=== PATIENT | female | born 1960 | race Caucasian/White ===

== ENCOUNTER → 2016-12-31 | Outpatient (CLI) | payer MEDICARE ==
--- NOTE | 2017-01-03 14:43 | MM ---
Reason for exam: screening (asymptomatic). Last mammogram was performed 1 year ago. History: Patient has history of other cancer at age 51. Benign stereotactic core biopsy of the right breast, January 24, 2003. Benign excisional biopsy of the right breast, 1997. Core biopsy of the right breast. Physical Findings: A clinical breast exam by your physician is recommended on an annual basis and results should be correlated with mammographic findings. MG 3D Screening Mammo W/Cad Bilateral CC and MLO view(s) were taken. Prior study comparison: January 07, 2016, right breast MG 3d work up w/cad RT. December 31, 2015, bilateral MG 3d screening mammo w/cad. December 25, 2014, bilateral MG screening mammo w CAD. There are scattered fibroglandular densities. Finding: There are typically benign round calcifications in both breasts. Previous mammotome biopsy in the right breast. There is no discrete abnormality. ASSESSMENT: Incomplete: need additional imaging evaluation, BI-RAD 0 RECOMMENDATION: Ultrasound of the left breast. (palpable by patient) [facility] will attempt to contact patient to return for ultrasound.
== END | disposition home or self-care (01) ==
LOC: RADMAMWWP 13:03
PROVIDERS: ATTEND Obstetrics & Gynecology
DX: Z12.31 Encounter for screening mammogram for malignant neoplasm of breast (principal); R92.8 Other abnormal and inconclusive findings on diagnostic imaging of breast
CPT/HCPCS: 77063; G0202

== ENCOUNTER → 2017-01-12 | Outpatient (CLI) | payer MEDICARE ==
--- NOTE | 2017-01-13 08:18 | USB ---
Reason for exam: additional evaluation requested from abnormal screening. History: Patient has history of other cancer at age 51. Benign stereotactic core biopsy of the right breast, January 24, 2003. Benign excisional biopsy of the right breast, 1997. Core biopsy of the right breast. Physical Findings: Nurse Summary: Patient complains of right breast lump, round, pea sized, comes and goes x 1.5 years (nurse mm). US Breast Workup Limited RT Right breast ultrasound demonstrates no cystic or solid lesion seen. These results were verbally communicated with the patient and result sheet given to the patient on 01/12/17. ASSESSMENT: Negative, BI-RAD 1 RECOMMENDATION: Return to routine screening mammogram schedule for both breasts. Manage on a clinical basis with regard to any suspicious palpable areas. The area can be reimaged if the palpable abnormality recurs.
== END | disposition home or self-care (01) ==
LOC: RADUSWWP 14:58
PROVIDERS: ATTEND Obstetrics & Gynecology
DX: R92.8 Other abnormal and inconclusive findings on diagnostic imaging of breast (principal)

== ENCOUNTER → 2018-01-06 | Outpatient (CLI) | payer MEDICARE ==
--- NOTE | 2018-01-09 10:37 | MM ---
Reason for exam: screening (asymptomatic). Last mammogram was performed 1 year ago. History: Patient has history of other cancer at age 51. Benign stereotactic core biopsy of the right breast, January 24, 2003. Benign excisional biopsy of the right breast, 1997. Core biopsy of the right breast. Physical Findings: A clinical breast exam by your physician is recommended on an annual basis and results should be correlated with mammographic findings. MG 3D Screening Mammo W/Cad Bilateral CC, MLO, and XCCL view(s) were taken. Prior study comparison: January 03, 2017, bilateral MG 3d screening mammo w/cad. January 07, 2016, right breast MG 3d work up w/cad RT. The breast tissue is heterogeneously dense. This may lower the sensitivity of mammography. Focal asymmetry upper outer right breast is stable. ASSESSMENT: Incomplete: need additional imaging evaluation, BI-RAD 0 RECOMMENDATION: Ultrasound of the right breast. Manage patient on a clinical basis. [facility] will attempt to contact patient to return for ultrasound.
== END | disposition home or self-care (01) ==
LOC: RADMAMWWP 15:07
PROVIDERS: ATTEND Family Medicine
DX: Z12.31 Encounter for screening mammogram for malignant neoplasm of breast (principal)
CPT/HCPCS: 77063; 77067

== ENCOUNTER → 2018-01-12 | Outpatient (CLI) | payer MEDICARE ==
--- NOTE | 2018-01-13 08:54 | USB ---
Reason for exam: additional evaluation requested from abnormal screening. History: Patient has history of other cancer at age 51. Benign stereotactic core biopsy of the right breast, January 24, 2003. Benign excisional biopsy of the right breast, 1997. Core biopsy of the right breast. Physical Findings: Nurse did not find any significant physical abnormalities on exam. US Breast Workup Limited RT Right breast ultrasound demonstrates a 0.9 x 0.5 x 0.5cm taller than wide, lobular, hypoechoic, vascular lesion at 2 o'clock. These results were verbally communicated with the patient and result sheet given to the patient on 01/12/18. ASSESSMENT: Suspicious, BI-RAD 4 RECOMMENDATION: Ultrasound core biopsy of the right breast. Called Dr. Simpson with mammographic findings and has scheduled an appointment for the patient for 02/02/18 at 8:[address] Geller. Biopsy scheduled for 01/20/18 at 11:30. PRELIMINARY REPORT CALLED AND FAXED TO DR. GELLER ON 01/13/18.
== END | disposition home or self-care (01) ==
LOC: RADUSWWP 14:46
PROVIDERS: ATTEND Family Medicine
DX: R92.8 Other abnormal and inconclusive findings on diagnostic imaging of breast (principal)

== ENCOUNTER → 2018-02-08 | Day surgery (SDC) | payer MEDICARE ==
--- NOTE | 2018-02-08 14:19 | USB ---
EXAMINATION TYPE: US discontinued breast bx RT DATE OF EXAM: 02/08/2018 CLINICAL HISTORY: R92.8 ABNORMAL MAMMOGRAM. Palpable abnormality. The patient also notes a history of prior deep venous thrombosis, hypercoagulability, and scleroderma. TECHNIQUE: Scheduled ultrasound guided core biopsy of right breast. COMPARISON: 01/12/2018 ultrasound, 01/06/2018 mammogram, and 01/20/2018 canceled biopsy. FINDINGS: Preprocedural imaging demonstrates an elongated vessel measuring 3 mm in caliber in the 2:00 position of the right breast in zone C located directly deep to the palpable abnormality as indicated by the patient. This vessel courses from superficial to deep within the right breast. The course of this ves sneha is difficult to be shown on a single image, however with extreme obliquely a hostess party sales representative image on the study of 02/19/2018 (image 7) was demonstrated to be similar to the prior questioned abnormali ty on image 23 of the exam 01/12/2018. On the prior exam only peripheral vascular flow is seen and the re is a hyperechoic slight halo with thickened vascular wall. The patient notes prior subtle pain at that time of examination that has resolved and therefore findings are most consistent with a previous thrombosed superficial vessel, now patent corresponding the palpable abnormality. In addition to mys elf a different imaging tech than on the exam of 01/20/2018 completed today's examination. This abnorma lity is also demonstrated on image 13 and 14 to be similar to the prior. The surrounding area was sca nned with no additional abnormality. 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 BI-RADS3- Probably benign. Recommendation: 6 month follow-up ultrasound is recommended to ensure no recurrence or additional abn ormality in the palpable region.
== END ==
LOC: RADUSWWP 11:16
PROVIDERS: ATTEND Internal Medicine Hematology & Oncology
DX: N63.10 Unspecified lump in the right breast, unspecified quadrant (principal); Z53.8 Procedure and treatment not carried out for other reasons; Z88.6 Allergy status to analgesic agent; Z88.1 Allergy status to other antibiotic agents; Z88.5 Allergy status to narcotic agent; Z88.0 Allergy status to penicillin; Z88.2 Allergy status to sulfonamides

== ENCOUNTER → 2018-08-11 | Outpatient (CLI) | payer MEDICARE ==
--- NOTE | 2018-08-11 15:03 | USB ---
Reason for exam: follow-up at short interval from prior study. History: Patient has history of other cancer at age 51. US discontinued breast bx RT of the right breast, February 08, 2018. US discontinued breast bx RT of the right breast, January 20, 2018. Benign stereotactic core biopsy of the right breast, January 24, 2003. Benign excisional biopsy of the right breast, 1997. Core biopsy of the right breast. Physical Findings: Nurse did not find any significant physical abnormalities on exam. US Breast RT Right complete breast ultrasound includes all four quadrants, the retroareolar region and axilla. Finding demonstrates blood vessel noted at 2 o'clock. This area corresponds to prior abnormality. These results were verbally communicated with the patient and result sheet given to the patient on 08/11/18. ASSESSMENT: Benign, BI-RAD 2 RECOMMENDATION: Return to routine screening mammogram schedule for both breasts. Back on schedule for January 2019. Manage patient on a clinical basis.
== END ==
LOC: RADUSWWP 13:54
PROVIDERS: ATTEND Obstetrics & Gynecology
DX: R92.8 Other abnormal and inconclusive findings on diagnostic imaging of breast (principal)

== ENCOUNTER → 2018-10-11 | Outpatient (CLI) | payer MEDICARE ==
[2018-10-11 12:46] LABS: Blood Urea Nitrogen 6 mg/dL (7-17)
--- NOTE | 2018-10-11 14:27 | MR ---
EXAMINATION TYPE: MR lumbar spine wo/w con DATE OF EXAM: 10/11/2018 COMPARISON: NONE HISTORY: Low back pain, bilateral lower extremity radiculopathy, abnormal reflexes, with history of C ML all per order. Back pain down right leg into toes for 12 years per patient. TECHNIQUE: Multiplanar, multisequence images of the lumbar spine is performed without and with IV contrast, util izing 10 mL intravenous Gadavist FINDINGS: Sagittal images of the lumbar spine show vertebral mild height loss and superior L4 endplat e. Alignment is satisfactory. Multilevel disc desiccation is present. There is mild to moderate disc space narrowing L4-L5 level mild disc space narrowing L5-S1 level. Posterior disc herniations are pre sent L2-L3 through L5-S1 levels on sagittal images. The conus medullaris is normal in position and si gnal ending mid L1 level. The bone marrow signal intensity is within normal limits. No suspicious en hancement is seen. Axial images at T12-L1 level shows tiny left paracentral disc protrusion mildly effacing anterior the renetta sac on axial image 28, bilateral neural foramina are patent. Axial images at L1-L2 level are felt within normal limits. Axial images at L2-L3 level show mild broad disc bulge with focal right paracentral disc protrusion e ffacing anterior thecal sac on axial image 18. Bilateral neural foramina are patent. Axial images at L3-L4 level show mild facet degenerative changes bilaterally. There is mild broad dis c bulge mildly effacing anterior thecal sac on axial image 13. There is mild left-sided anterior infe rior neural foraminal narrowing. Right-sided neural foramen is patent. Axial images at the L4-L5 level show moderate broad disc bulge minimally effacing anterior thecal sac and axial image 8. There is mild facet degenerative changes seen bilaterally. Bilateral neural celi maria l are patent. Axial images at the L5-S1 level show moderate to advanced facet degenerative changes bilaterally. The re is central disc protrusion effacing anterior thecal sac on axial image 3. There is moderate to adv anced left-sided neural foraminal narrowing encroaching near anterior aspect left L5 nerve sagittal i mage 2 and axial image 3. Right-sided neural foramina shows more mild to moderate anterior inferior n eural foraminal narrowing. There is nonenhancing 7 mm round T2 hyperintense lesions laterally right kidney axial image 28 2 smal l to further characterize per presumed simple cyst IMPRESSION: Multilevel degenerative changes in the lumbar spine as detailed above, there is increased left-sided neural foraminal narrowing noted. No large disc herniation identified to account for marcelo ent's right-sided radiculopathy type symptoms. No suspicious enhancement is present.
== END | disposition home or self-care (01) ==
LOC: RADMRIMAIN 12:03
PROVIDERS: ATTEND Physical Medicine & Rehabilitation
DX: M48.061 Spinal stenosis, lumbar region without neurogenic claudication (principal); M47.816 Spondylosis without myelopathy or radiculopathy, lumbar region; E03.9 Hypothyroidism, unspecified; I10 Essential (primary) hypertension; C92.10 Chronic myeloid leukemia, BCR/ABL-positive, not having achieved remission; Z86.73 Personal history of transient ischemic attack (TIA), and cerebral infarction without residual deficits
CPT/HCPCS: 82565; 84520; 72158; 36415; A9585

== ENCOUNTER → 2019-01-26 | Outpatient (CLI) | payer MEDICARE ==
--- NOTE | 2019-01-30 13:08 | MM ---
Reason for exam: screening (asymptomatic). Last mammogram was performed 1 year and 1 month ago. History: Patient has history of other cancer at age 51. US discontinued breast bx RT of the right breast, February 08, 2018. US discontinued breast bx RT of the right breast, January 20, 2018. Benign stereotactic core biopsy of the right breast, January 24, 2003. Benign excisional biopsy of the right breast, 1997. Core biopsy of the right breast. Physical Findings: A clinical breast exam by your physician is recommended on an annual basis and results should be correlated with mammographic findings. MG 3D Screening Mammo W/Cad Bilateral CC and MLO view(s) were taken. Prior study comparison: January 06, 2018, bilateral MG 3d screening mammo w/cad. January 03, 2017, bilateral MG 3d screening mammo w/cad. There are scattered fibroglandular densities. Previous mammotome biopsy in the right breast. Stable focal asymmetry right upper outer quadrant, possibly excisional scar. Scattered benign oil cysts. No significant changes when compared with prior studies. ASSESSMENT: Benign, BI-RAD 2 RECOMMENDATION: Routine screening mammogram of both breasts in 1 year.
== END | disposition home or self-care (01) ==
LOC: RADMAMWWP 12:28
PROVIDERS: ATTEND Family Medicine
DX: Z12.31 Encounter for screening mammogram for malignant neoplasm of breast (principal)
CPT/HCPCS: 77063; 77067

== ENCOUNTER → 2019-03-21 | Outpatient (CLI) | payer MEDICARE ==
--- NOTE | 2019-03-28 14:16 | P.ARTDOP ---
Arterial Doppler LOWER EXTREMITY ARTERIAL DOPPLER: DATE OF SERVICE: 03/21/2019 Reason for study: Cold painful feet. Doppler waveforms: Multiphasic bilaterally throughout. Pulse volume recording: Toe waveforms are very blunted.. Pressure gradients: None. Ankle-brachial indices: Greater than 1 bilaterally. Toe pressures: 84 on the right, 77 on the left Impression: Normal study except at the toe level where waveforms are very blunted. Would be consistent with vasospastic phenomenon. Clinical correlation recommended..
== END | disposition home or self-care (01) ==
LOC: RADUSWWP 12:25
PROVIDERS: ATTEND Family Medicine
DX: I73.00 Raynaud's syndrome without gangrene (principal)
CPT/HCPCS: 93923

== ENCOUNTER → 2021-03-09 | Outpatient (CLI) | payer MEDICARE ==
--- NOTE | 2021-03-09 15:31 | BD ---
EXAMINATION TYPE: Axial Bone Density DATE OF EXAM: 03/09/2021 COMPARISON: 01.02.2015 CLINICAL HISTORY: 60 YR OLD FEMALE.....ICD-10 CODE: Z13.820 SCREEN FOR OSTEOPOROSIS Height: 65.3 Weight: 222 FRAX RISK QUESTIONS: Glucocorticoids (More than 3mos): YES (Ex: prednisone, prednisolone, methylprednisolone, dexamethasone, and hydrocortisone). History of Fracture in Adulthood: YES RISK FACTORS HISTORY OF: HX OF RIGHT ANKLE AND GREAT TOE BOTH >40 YRS OLD Family History of Osteoporosis: YES, MOTHER WITH SPINAL FXS Postmenopausal woman: YES, AT AGE 51YRS OLD Lost more than 2 inches in height since high school: YES Hyperparathyroidism: NO Adrenal Insufficiency: NO MEDICATIONS: Prednisone or other steroids: YES, FOR ASTHMA FOR MANY YRS Thyroid Medications: YES, SYNTHROID FOR ABOUT 40 YRS Additional Medications: BP MEDS, ZOLOFT, CHEMO 2X DAILY FOR 9 YRS, REFLUX MEDS, STATIN FOR CHOLESTERO L, VIT D AND CALCIUM Additional History: CHRONIC LEUKEMIA, SCLERODERMA, HX OF MILD STROKE 6 YRS AGO, HYPERTENSION, EXAM MEASUREMENTS: Bone mineral densitometry was performed using the Viewpoint System. Bone mineral density as measured about the Lumbar spine is: ----- L1-L4(G/cm2): 1.157 T Score Values are as follows: ----- L1: -0.2 ----- L2: -1.5 ----- L3: -0.1 ----- L4: 1.1 ----- L1-L4: -0.2 Bone mineral density has: Decreased -6.4% since study of: 01.02.2015 Bone mineral density about the R hip (g/cm2): 0.901 Bone mineral density about the L hip (g/cm2): 0.944 T Score values are as follows: -----R Neck: -1.5 -----L Neck: -0.9 -----R Total: -0.8 -----L Total: -0.5 Bone mineral density has: Decreased -6.0% since study of: 01.02.2015 FRAX%s: THERE IS A 25.6% CHANCE FOR A MAJOR OSTEOPOROTIC FX AND A 2.9% FOR HIP.....PROBABILITY F OR FX IN 10 YRS TIME IMPRESSION: Osteopenia (T Score between -2.5 and -1). There is slightly increased risk of fracture and the patient may be considered for treatment. Re-Screen 2-5 years. NOTE: T-SCORE=SD OF THE YOUNG ADULT MEAN.
== END | disposition home or self-care (01) ==
LOC: RADBDWWP 11:22
PROVIDERS: ATTEND Obstetrics & Gynecology
DX: Z13.820 Encounter for screening for osteoporosis (principal); M85.89 Other specified disorders of bone density and structure, multiple sites; Z78.0 Asymptomatic menopausal state
CPT/HCPCS: 77080

== ENCOUNTER → 2021-03-09 | Outpatient (CLI) | payer MEDICARE ==
--- NOTE | 2021-03-11 12:12 | MM ---
Reason for exam: screening (asymptomatic). Last mammogram was performed 2 years and 1 month ago. History: Patient is postmenopausal and has history of other cancer at age 51. US discontinued breast bx RT of the right breast, February 08, 2018. US discontinued breast bx RT of the right breast, January 20, 2018. Benign stereotactic core biopsy of the right breast, January 24, 2003. Benign excisional biopsy of the right breast, 1997. Core biopsy of the right breast. Physical Findings: A clinical breast exam by your physician is recommended on an annual basis and results should be correlated with mammographic findings. MG 3D Screening Mammo W/Cad Bilateral CC and MLO view(s) were taken. Prior study comparison: January 26, 2019, bilateral MG 3d screening mammo w/cad. January 12, 2018, right breast US breast workup limited RT. January 06, 2018, bilateral MG 3d screening mammo w/cad. December 31, 2015, bilateral MG 3d screening mammo w/cad. Previous mammotome biopsy in the right breast. Enlarging irregular density 11 o'clock posterior right breast. Benign oil cyst calcifications. ASSESSMENT: Incomplete: need additional imaging evaluation, BI-RAD 0 RECOMMENDATION: Special view mammogram and ultrasound of the right breast. [facility] will attempt to contact patient to return for supplemental views and ultrasound.
== END | disposition home or self-care (01) ==
LOC: RADMAMWWP 11:24
PROVIDERS: ATTEND Family Medicine
DX: Z12.31 Encounter for screening mammogram for malignant neoplasm of breast (principal); Z78.0 Asymptomatic menopausal state
CPT/HCPCS: 77063; 77067

== ENCOUNTER → 2021-03-13 | Outpatient (CLI) | payer MEDICARE ==
--- NOTE | 2021-03-19 11:36 | MM ---
Reason for exam: additional evaluation requested from abnormal screening. Last mammogram was performed less than 1 month ago. History: Patient is postmenopausal and has history of other cancer at age 51. US discontinued breast bx RT of the right breast, February 08, 2018. US discontinued breast bx RT of the right breast, January 20, 2018. Benign stereotactic core biopsy of the right breast, January 24, 2003. Benign excisional biopsy of the right breast, 1997. Core biopsy of the right breast. Physical Findings: Nurse did not find any significant physical abnormalities on exam. MG 3D Work Up W/Cad RT Spot compression CC, spot compression MLO, and ML view(s) were taken of the right breast. Prior study comparison: March 09, 2021, bilateral MG 3d screening mammo w/cad. January 26, 2019, bilateral MG 3d screening mammo w/cad. There are scattered fibroglandular densities. Previous mammotome biopsy in the right breast. 1.5cm spiculated density 11 o'clock middle to posterior depth persists. These results were verbally communicated with the patient and result sheet given to the patient on 03/13/21. ASSESSMENT: Incomplete: need additional imaging evaluation, BI-RAD 0 RECOMMENDATION: Ultrasound of the right breast.
--- NOTE | 2021-03-19 11:39 | USB ---
Reason for exam: additional evaluation requested from abnormal screening. History: Patient is postmenopausal and has history of other cancer at age 51. US discontinued breast bx RT of the right breast, February 08, 2018. US discontinued breast bx RT of the right breast, January 20, 2018. Benign stereotactic core biopsy of the right breast, January 24, 2003. Benign excisional biopsy of the right breast, 1997. Core biopsy of the right breast. US Breast Workup RT Right complete breast ultrasound includes all four quadrants, the retroareolar region and axilla. Finding demonstrates a 1.3 x 1.1 x 1.7cm irregular, taller than wide, hypoechoic, vascular lesion at 11 o'clock, biopsy recommended and a 2.6 x 1.4 x 0.9cm oval lymph node at the axilla, benign appearance. These results were verbally communicated with the patient and result sheet given to the patient on 03/13/21. ASSESSMENT: Highly suggestive of malignancy, BI-RAD 5 RECOMMENDATION: Ultrasound core biopsy of the right breast. Called Dr. Simpson office with mammographic findings and has scheduled an appointment for the patient for 04/29/21 at 4:[address] Geller. Biopsy scheduled for 04/01/21 at 10:30. PRELIMINARY REPORT CALLED AND FAXED TO DR. GELLER ON 03/19/21.
== END | disposition home or self-care (01) ==
LOC: RADMAMWWP 07:43
PROVIDERS: ATTEND Family Medicine
DX: N64.89 Other specified disorders of breast (principal); R92.8 Other abnormal and inconclusive findings on diagnostic imaging of breast; Z78.0 Asymptomatic menopausal state
CPT/HCPCS: 77065; 76641; G0279; 77061

== ENCOUNTER → 2021-04-01 | Day surgery (SDC) | payer MEDICARE ==
[2021-04-01 09:37] VITALS: RESP 16
[2021-04-01 11:34] VITALS: BP 102/67; PULSE 71; TEMP 97.5
--- NOTE | 2021-04-01 11:34 | USB ---
EXAMINATION TYPE: US biopsy breast VAD RT DATE OF EXAM: 04/01/2021 CLINICAL HISTORY: R92.8 Abnormal mammogram. Mass in right breast TECHNIQUE: Ultrasound guided core biopsy of right breast. COMPARISON: 08/11/2018 and diagnostic 04/01/2021 FINDINGS: The procedure of ultrasound guided core biopsy was explained to the patient. Benefits, alt ernatives, and risks were discussed. An informed consent was then obtained. The patient was placed in supine positioning for imaging and for the procedure. The overlying skin w as prepped and draped in usual sterile fashion. Lidocaine buffered with bicarbonate was used as anes thetic into the skin and subcutaneous tissue up to area of concern in the right breast. A millicent was m bonita with surgical scalpel. Under ultrasound guidance, a 12-gauge Cloudy Daysero biopsy gun device was used to obtain 5 core samples. Fo llowing this, a biopsy clip was left in lesion. The patient tolerated the procedure well without any immediate complication. The patient was kept in the radiology department for short stay after the procedure and then discharged home in stable condi tion. IMPRESSION: Successful, uncomplicated ultrasound guided core biopsy of area of concern in the right b reast. Full pathology results to follow.
--- NOTE | 2021-04-01 13:37 | MM ---
Reason for exam: additional evaluation requested from abnormal screening. Last mammogram was performed 1 month ago. History: Patient is postmenopausal and has history of other cancer at age 51. US discontinued breast bx RT of the right breast, February 08, 2018. US discontinued breast bx RT of the right breast, January 20, 2018. Benign stereotactic core biopsy of the right breast, January 24, 2003. Benign excisional biopsy of the right breast, 1997. Core biopsy of the right breast. MG Diagnostic Mammo RT Wo CAD CC and MLO view(s) were taken of the right breast. Prior study comparison: March 13, 2021, right breast MG 3d work up w/cad RT. March 09, 2021, bilateral MG 3d screening mammo w/cad. ASSESSMENT: Post procedure mammogram for marker placement RECOMMENDATION: Ultrasound of the right breast in 6 months. PENDING PATHOLOGY RESULTS.
== END ==
LOC: RADUSWWP 09:20
PROVIDERS: ATTEND Surgery
DX: C50.411 Malignant neoplasm of upper-outer quadrant of right female breast (principal); Z17.0 Estrogen receptor positive status [ER+]; Z88.6 Allergy status to analgesic agent; Z88.1 Allergy status to other antibiotic agents; Z88.5 Allergy status to narcotic agent; Z88.0 Allergy status to penicillin; Z88.2 Allergy status to sulfonamides; Z88.8 Allergy status to other drugs, medicaments and biological substances
CPT/HCPCS: 19083; 88305; 88342; 88341; 77065; A4648; J2001

== ENCOUNTER 2021-04-20 08:44 | Day surgery (SDC) | payer MEDICARE ==
[2021-04-17 12:08] VITALS: BMI 34.2
--- NOTE | 2021-04-20 07:47 | P.HPADDEND ---
H&P Addendum H&P Addendum Date: 04/20/21 Please refer to recent history and physical. Patient was seen by radiation oncology and oncology. She has been cleared to proceed with right breast lumpectomy. Again will plan wire localization of both the recently biopsied tumor and the enlarged lymph nodes seen on recent ultrasound.
--- NOTE | 2021-04-20 07:48 | P.NAPBC ---
NAPBC Queries - NAPBC Queries Was patient's case review presented at [facility] tumor board? If no, comment.: No Was patient's pathology reviewed at [facility]? If no, comment.: Yes Was breast conservation surgery offered? If no, comment.: Yes Was sentinel node biopsy offered? If no, comment.: Yes Was diagnosis confirmed by percutaneous core biopsy? If no, comment.: Yes Is patient mastectomy patient?: No Was a preop referral to reconstructive surgeon offered?: Yes Clinical Stage: 1a
[~2021-04-20 08:44] MED LIST: ACETAMINOPHEN TAB 500 MG TAB PO PRN; DEXAMETHASONE SOD PHOSPHATE 4 MG/ML 1 ML VIAL IV ONE; HEPARIN SODIUM,PORCINE/PF 5,000 UNIT/0.5 ML SYRINGE SQ PRN; LACTATED RINGERS 1,000 ML IV SCH; LIDOCAINE 1% (10MG/ML) FOR IV START INTRADERMA PRN; MIDAZOLAM 2 MG/2 ML VIAL IV PRN; Pre Op ABX Message 1 EACH MISC MISCELLANE ONE
[2021-04-20] MEDS ORDERED: ONDANSETRON 4 MG/2 ML VIAL ONE (10:17)
[2021-04-20] MEDS ORDERED: ALPRAZolam 0.5 MG TAB ONE (10:18)
[2021-04-20] MEDS ORDERED: LIDOCAINE 1% INJ 10MG/ML (20 ML MDV) SQ ONE (11:43)
[2021-04-20] MEDS ORDERED: SUCCINYLCHOLINE CHLORIDE 100 MG/5 ML SYR IV ONE (12:40)
[2021-04-20] MEDS ORDERED: PROPOFOL 10 MG/ML 20 ML VIAL IV ONE (12:40)
[2021-04-20] MEDS ORDERED: ePHEDrine SULFATE/0.9% NACL/PF 50 MG/5 ML SYRINGE IV ONE (12:40)
[2021-04-20] MEDS ORDERED: fentaNYL (PF) 50 MCG/ML 2 ML AMP ONE (12:40)
[2021-04-20] MEDS ORDERED: MIDAZOLAM 2 MG/2 ML VIAL ONE (12:40)
[2021-04-20] MEDS ORDERED: LIDOCAINE 1% INJ 10MG/ML (20 ML MDV) ONE (12:40)
[2021-04-20] MEDS ORDERED: KETOROLAC 15 MG/ML 1 ML VIAL ONE (12:40)
[2021-04-20] MEDS ORDERED: SODIUM CHLORIDE 0.9% 100 ML with ceFAZolin 2,000 MG IV ONE ×2 (12:42)
--- NOTE | 2021-04-20 12:52 | USB ---
EXAM: Needle localization with wire placement. CLINICAL HISTORY: Right breast cancer TECHNIQUE: Needle localization with wire placement right breast and axilla. COMPARISON: 04/01/2021 FINDINGS: The procedure of needle localization with wire placement was explained to the patient. Benefits, alternatives, and risks were discussed. An informed consent was then obtained. The patient was placed on the ultrasound table. The right breast mass at 11:00 was localized. Normal-appearing right axillary lymph nodes were localized. The patient was prepped and draped in the normal sterile fashion. Local analgesia was provided with lidocaine first at the right breast mass through which a 7 cm wire was inserted for localization and the introducer was withdrawn under direct fluoroscopic guidance. Masses at Center thick portion of the wire. Attention was then turned to the normal-appearing right axillary lymph nodes. Lidocaine was administered for local analgesia. An introducer with wire was inserted through the lymph node with the clock just past the lymph node under direct fluoroscopic guidance. Post procedure mammogram images were obtained which demonstrate the wire localization of the right breast mass at 11:00. The patient tolerated the procedure well without any immediate complication. The patient was kept in the radiology department for short stay after the procedure and then taken to surgery for surgical excision. IMPRESSION: Successful, uncomplicated needle localization with wire placement within right breast mass and right axillary lymph node. Pathology Results: Malignant A. SENTINEL LYMPH NODES, BIOPSY: Two lymph nodes negative for metastasis. CK7 and EILEEN immunoperoxidase stains are confirmatory (controls appropriate). B. RIGHT BREAST ANTERIOR SUPERIOR NEW MARGIN, EXCISION: Benign breast with fibrocystic changes. C. 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 See Surgical Pathology Cancer Case Summary. Recommendation Surgical consult of the right breast. TYREED
[2021-04-20] MEDS ORDERED: METHYLENE BLUE 50 MG/10 ML AMPUL MISCELLANE ONE ×2 (13:00→13:09)
[2021-04-20] MEDS ORDERED: LACTATED RINGERS 1,000 ML IV ONE (13:39)
[2021-04-20] MEDS ORDERED: NALOXONE 0.4 MG/ML 1 ML VIAL IV PRN (14:28)
[2021-04-20] MEDS ORDERED: ONDANSETRON 4 MG/2 ML VIAL IVP PRN (14:28)
[2021-04-20] MEDS ORDERED: ACETAMINOPHEN TAB 325 MG TAB PO PRN (14:28)
[2021-04-20] MEDS ORDERED: HYDROmorphone 0.5 MG/0.5 ML SYRINGE IVP PRN (14:28)
[2021-04-20] MEDS ORDERED: HYDROcodone/APAP 5-325MG 1 EACH TAB PO PRN (14:28)
--- NOTE | 2021-04-20 14:30 | NM ---
EXAMINATION TYPE: NM sentinel node injection DATE OF EXAM: 04/20/2021 COMPARISON: NONE INDICATION: Abnormal mammogram. Informed consent was obtained. A timeout was performed. The area around the right nipple was cleansed with alcohol. In a single dose, a total of 437 uCi Te chnetium 99m Tilmanocept was injected. The patient tolerated the procedure very well. IMPRESSIONS: 1. Successful injection for sentinel node evaluation.
[2021-04-20 14:31] VITALS: TEMP 97
--- NOTE | 2021-04-20 14:34 | P.OP ---
Date of Procedure: 04/20/21 Procedure(s) Performed: PREOPERATIVE DIAGNOSIS: Right breast cancer POSTOPERATIVE DIAGNOSIS: Same PROCEDURE: Right Breast wire localization lumpectomy with sentinel lymph node biopsy SURGEON: Yimi EBL: 20 mL ANESTHESIA: General COMPLICATIONS: None OPERATIVE PROCEDURE: Patient was placed on the operating room table in the supine position. 2 mL of methylene blue was injected into the subareolar space. The breast was then massaged for 5 minutes. The breast was prepped and draped in usual sterile fashion. The right axilla was addressed at that time. The hot spot in the right axilla was identified. A small curvilinear incision was made using the scalpel. Dissection down through the subcutaneous tissues took place using electrocautery. Using the neoprobe I identified a total of 2 sentinel lymph nodes. Neither of these were blue in color. The wire localized larger lymph node was present laterally and also excised. The wire was removed. This also had some radioactivity. These all appeared normal with the exception of the enlarged node which had a benign appearance by ultrasound. These were sent for permanent sectioning. No bleeding was seen. The subcutaneous tissues were closed using 3-0 Vicryl sutures. The skin was closed using 4-0 Monocryl sutures. The wire entrance site was then addressed. This was present at the 10:00 location. A curvilinear incision was made adjacent to the wire entrance site. I followed the wire down into the breast tissue. An adequate lumpectomy specimen then took place around the wire. Margins of 1.5-2 cm worth attempted to be achieved. Palpation of the specimen suggested that the anterior and posterior margins were somewhat close. I took an additional margin anteriorly and posteriorly and these margins were painted the appropriate color on the new margin side. The initial specimen was also painted the appropriate 6 colors. It should be noted that as I was painting I accidentally used the purple/bilateral in place of the black ink on both the lumpectomy specimen and the additional margin specimen. Clips were used to identify the lumpectomy cavity. The clip was confirmed to be within the lumpectomy specimen by radiology. The subcutaneous tissues were closed using 3-0 Vicryl sutures. The skin was closed using a running 4-0 Monocryl stitch. Skin glue and sterile dressings were then applied. DISPOSITION: Stable to recovery room
[2021-04-20] MEDS: HYDROmorphone 0.5 MG/0.5 ML SYRINGE IVP PRN ×2 (14:48→14:57)
[2021-04-20 15:27] VITALS: BP 122/77; PULSE 86; RESP 18
--- NOTE | 2021-04-21 09:23 | MM ---
Single view right breast specimen INDICATION: Right breast mass COMPARISON: 04/01/2021 FINDINGS: There is a mass with biopsy clip and distal localization wire within the right breast specimen. For full details please see surgical report. IMPRESSION: There is a mass with biopsy clip and distal localization wire within the right breast specimen. For full details please see surgical report. Pathology Results: Malignant A. SENTINEL LYMPH NODES, BIOPSY: Two lymph nodes negative for metastasis. CK7 and EILEEN immunoperoxidase stains are confirmatory (controls appropriate). B. RIGHT BREAST ANTERIOR SUPERIOR NEW MARGIN, EXCISION: Benign breast with fibrocystic changes. C. 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 See Surgical Pathology Cancer Case Summary. Recommendation Surgical consult of the right breast. DANNY
== END 2021-04-20 16:29 | disposition home or self-care (01) ==
LOC: OR 08:44
PROVIDERS: ATTEND Surgery
DX: C50.911 Malignant neoplasm of unspecified site of right female breast (principal); R59.0 Localized enlarged lymph nodes; R92.8 Other abnormal and inconclusive findings on diagnostic imaging of breast; Z85.3 Personal history of malignant neoplasm of breast; I10 Essential (primary) hypertension; K21.9 Gastro-esophageal reflux disease without esophagitis; Z86.73 Personal history of transient ischemic attack (TIA), and cerebral infarction without residual deficits
CPT/HCPCS: 19301; 88342; 88307; 88341; 77065; 76098; 19285; 19286; 38792; A9520; J2250; J1100; J0690; J2001; J3010; J1885; J0330; J2704; Q9968; J1170; J1644

== ENCOUNTER 2021-04-26 08:17 | Emergency (ER) | payer MEDICARE ==
[2021-04-26 08:27] VITALS: BP 157/88; PULSE 82; RESP 16; TEMP 97.9
--- NOTE | 2021-04-26 09:28 | XR ---
EXAMINATION TYPE: XR Hip Complete RT DATE OF EXAM: 04/26/2021 COMPARISON: NONE HISTORY: 60 years Female. STUDY INDICATION GIVEN: Right hip pain TECHNIQUE: Frontal and oblique right hip joint radiographs FINDINGS AND IMPRESSION: There is a well-corticated 2.7 cm osseous fragment superior to the right hip joint along the inner as pect of the iliac iliac bone. This may represent a remotely fractured fragment or a loose body. There is mild narrowing of the right hip joint space and minimal marginal spurring suggesting osteoar throsis No radiopaque foreign body. The soft tissue is normal in appearance.. No evidence of acute right hip joint fracture or dislocation.
[2021-04-26] MEDS ORDERED: methylPREDNISolone SOD SUCCI 125 MG/2 ML VIAL IM ONE (09:59)
[2021-04-26] MEDS ORDERED: MORPHINE SULFATE 4 MG/ML SYRINGE IM STA (09:59)
--- NOTE | 2021-04-26 10:02 | ED ---
Extremity Problem HPI - General Chief complaint: Extremity Problem,Nontraumatic Stated complaint: R hip pain Time Seen by Provider: 04/26/21 08:38 Source: patient Mode of arrival: wheelchair Limitations: no limitations - History of Present Illness Initial comments: Patient is a 60-year-old female presenting to the emergency Department with complaints of right hip pain that flared up last night. Patient states she does have arthritis of her right hip, she is known this for years. Patient states early this morning she got up to use the restroom, she has a higher bed and went to climb back up and felt some soreness in her right hip. She ended up falling asleep in a couple hours later around 6:30 in the morning she woke up and noticed pain in the outside of her right hip. She denies any falls or trauma. She states she did take one of her [place]'s this morning but it seems to not be helping. She denies any fevers or chills. She denies any pain and of her right groin. He is also complaining of a possible infection of her right little finger that started over a few weeks ago. She had some swelling over the past couple weeks, felt a blister and now it spread and swollen again. She does have a history of scleroderma but this feels different. She has again no fevers or chills. She has no further complaints. - Related Data Home Medications Medication Instructions Recorded Confirmed Albuterol Nebulized [Ventolin 0 unit INHALATION DIRECTED 11/06/15 04/17/21 Nebulized] Benazepril HCl 20 tab PO DAILY 11/06/15 04/17/21 Cyclobenzaprine [Flexeril] 10 tab PO Q6HR PRN 11/06/15 04/17/21 Levothyroxine Sodium [Synthroid] 112 tab PO DAILY 11/06/15 04/17/21 Loratadine [Claritin] 10 tab PO HS 11/06/15 04/17/21 Nilotinib HCl [Tasigna] 300 tab PO BID 11/06/15 04/17/21 Omeprazole [PriLOSEC] 20 tab PO BID 11/06/15 04/17/21 Sertraline [Zoloft] 50 tab PO HS 11/06/15 04/17/21 Simvastatin [Zocor] 10 tab PO HS 11/06/15 04/17/21 amLODIPine [Norvasc] 10 tab PO DAILY 11/06/15 04/17/21 atenoloL [Atenolol] 25 tab PO BID 11/06/15 04/17/21 Albuterol Inhaler [Ventolin Hfa 60 puff INHALATION DIRECTED PRN 03/18/21 04/17/21 Inhaler] Ascorbic Acid [Vitamin C] 1,000 mg PO DAILY 04/17/21 04/17/21 Calcium (Unknown Dose) 1 tab PO DAILY 04/17/21 Cholecalciferol [Vitamin D3 (25 25 mcg PO DAILY 04/17/21 04/17/21 Mcg = 1000 Iu)] HYDROcodone/APAP 10-325MG [[place] 1 tab PO DIRECTED PRN 04/17/21 04/17/21 10-325] Multivitamins, Thera [Multivitamin 1 tab PO DAILY 04/17/21 04/17/21 (formulary)] Nitro Cream 1 applicate TOPICAL DIRECTED PRN 04/17/21 Vitamin C/Biotin [Hair, Skin and 1 tab PO DAILY 04/17/21 04/17/21 Nails] Previous Rx's Medication Instructions Recorded HYDROcodone/APAP 5-325MG [[place] 1 tab PO Q6HR PRN 3 Days #12 tab 04/20/21 5-325] Cephalexin [Keflex] 500 mg PO BID 5 Days #10 cap 04/26/21 predniSONE 50 mg PO DAILY #5 tab 04/26/21 Allergies Allergy/AdvReac Type Severity Reaction Status Date / Time aspirin AdvReac Rash/Hives Verified 04/26/21 08:25 clindamycin AdvReac Rash/Hives Verified 04/26/21 08:25 codeine AdvReac Rash/Hives Verified 04/26/21 08:25 ondansetron HCl AdvReac Rash/Hives Verified 04/26/21 08:25 [From Zofran (as hydrochloride)] Penicillins AdvReac Anaphylaxis Verified 04/26/21 08:25 Sulfa (Sulfonamide AdvReac Rash/Hives Verified 04/26/21 08:25 Antibiotics) Review of Systems ROS Statement: Those systems with pertinent positive or pertinent negative responses have been documented in the HPI. ROS Other: All systems not noted in ROS Statement are negative. Past Medical History Past Medical History: Asthma, Fibromyalgia, GERD/Reflux, Hypertension, Osteoarthritis (OA), Rheumatoid Arthritis (RA), Thyroid Disorder Additional Past Medical History / Comment(s): Chronic Myelocytic Leukemia, hypothyroidism, tachycardia, scleredema History of Any Multi-Drug Resistant Organisms: None Reported Past Surgical History: Appendectomy, Breast Surgery, Cholecystectomy, Hysterectomy, Orthopedic Surgery, Tonsillectomy Past Anesthesia/Blood Transfusion Reactions: Postoperative Nausea & Vomiting (PONV) Past Psychological History: Anxiety, Depression Smoking Status: Never smoker Past Alcohol Use History: None Reported Past Drug Use History: None Reported General Exam - General Exam Comments Initial Comments: GENERAL: Patient is well-developed and well-nourished. Patient is nontoxic and in moderate distress. HEAD: Atraumatic, normocephalic. EYES: Pupils equal round and reactive to light, extraocular movements intact, sclera anicteric, conjunctiva are normal. Eyelids were unremarkable. ENT: Nares patent, oropharynx clear without exudates. Moist mucous membranes. NECK: Normal range of motion, supple without lymphadenopathy or JVD. LUNGS: Unlabored respirations. Breath sounds clear to auscultation bilaterally and equal. No wheezes rales or rhonchi. HEART: Regular rate and rhythm without murmurs, rubs or gallops. ABDOMEN: Soft, nontender, normoactive bowel sounds. MUSCULOSKELETAL: The patient has painful hip flexion and extension, she has pain over the lateral aspect of the right hip. She is neurovascular intact. No pitting or edema. No clubbing or cyanosis. NEUROLOGICAL: Patient is alert and oriented x 3. SKIN: Warm, Dry, normal turgor, no rashes. Patient has some swelling and erythema of the right little finger, consistent with possible cellulitis, could be a flare of scleroderma as well. Limitations: no limitations Course Vital Signs 04/26/ 08:25 Temperature 97.9 F Pulse Rate 82 Respiratory 16 Rate Blood Pressure 157/88 O2 Sat by Pulse 96 Oximetry Medical Decision Making - Medical Decision Making Patient is a 60-year-old female here with right hip pain increased since early this morning. No falls or trauma. Just complaining of possible cellulitis of her right little finger. X-rays of the right hip show a well corticated osseous fragments superior to the right hip which could be represent a loose body or a old fractured fragment. There is no evidence of acute right hip joint fracture or dislocation. She's had no recent falls or trauma. I discussed these findings with the patient. I recommended following up with her orthopedic doctor. I will give her shot of pain meds and steroids today. I also put her on antibiotics for possible cellulitis of the right fifth digit. She is in agreement to this plan of care. She'll follow up with orthopedics. Return parameters were discussed with her and she verbalized understanding. Case discussed Dr. Sebastian. Disposition Clinical Impression: Right hip pain, Cellulitis of right little finger Disposition: HOME SELF-CARE Condition: Stable Instructions (If sedation given, give patient instructions): Hip Pain (ED) Additional Instructions: Please return to the Emergency Department if symptoms worsen or any other concerns. Take steroids as prescribed, starting tomorrow. Take antibiotics for finger infection. Apply ice to the area, heat, limit stairs or physical activity for the next few days. Follow-up with orthopedics as discussed. Prescriptions: Cephalexin [Keflex] 500 mg PO BID 5 Days #10 cap predniSONE 50 mg PO DAILY #5 tab Is patient prescribed a controlled substance at d/c from ED?: No Referrals: Mookie Simpson DO [Primary Care Provider] - 1-2 days Time of Disposition: 10:02
== END 2021-04-26 10:06 | disposition home or self-care (01) ==
LOC: EC 08:17
DX: M25.551 Pain in right hip (principal); L03.011 Cellulitis of right finger; I10 Essential (primary) hypertension; F32.9 Major depressive disorder, single episode, unspecified; F41.9 Anxiety disorder, unspecified; E03.9 Hypothyroidism, unspecified; J45.909 Unspecified asthma, uncomplicated; K21.9 Gastro-esophageal reflux disease without esophagitis; M06.9 Rheumatoid arthritis, unspecified; M79.7 Fibromyalgia; Z79.52 Long term (current) use of systemic steroids; Z79.51 Long term (current) use of inhaled steroids; Z79.891 Long term (current) use of opiate analgesic; Z79.890 Hormone replacement therapy; Z79.899 Other long term (current) drug therapy; Z88.0 Allergy status to penicillin; Z88.1 Allergy status to other antibiotic agents; Z88.2 Allergy status to sulfonamides; Z88.5 Allergy status to narcotic agent; Z88.6 Allergy status to analgesic agent; Z88.8 Allergy status to other drugs, medicaments and biological substances
CPT/HCPCS: 73502; 99283; 96372 ×2; J2270; J2930

== ENCOUNTER → 2021-04-28 | Outpatient (CLI) | payer MEDICARE ==
--- NOTE | 2021-04-28 13:36 | CT ---
EXAMINATION TYPE: CT hip RT wo con DATE OF EXAM: 04/28/2021 COMPARISON: None HISTORY: Right hip pain post fall 2-[address] DLP: 1209.1 mGycm Automated exposure control for dose reduction was used. Contrast: None Technique: Axial images 3 mm thick sections. Reconstructed images in the coronal and sagittal plane. FINDINGS: Femoral head articulates with the acetabulum. Joint space is narrowed compatible with osteoarthritic degenerative change. No significant joint effusion is evident. Soft tissue musculature density appear s normal. No suspicious changes suggests an acute fracture evident. Note is made of some degenerative changes a t the L5-S1 disc level. IMPRESSION: 1. MILD OSTEOARTHRITIC DEGENERATIVE CHANGE LEFT HIP.
--- NOTE | 2021-04-29 11:40 | CT ---
EXAMINATION TYPE: CT hip RT wo con DATE OF EXAM: 04/29/2021 COMPARISON: None HISTORY: Hip pain CT DLP: 38.10 mGycm Automated exposure control for dose reduction was used. Contrast: None Technique: Axial images 3 mm thick sections. Reconstructed images in coronal and sagittal plane. Thre e-D reconstructed images are performed. FINDINGS: Note is made of some vacuum phenomenon in the right sacroiliac joint. Some acetabular spurring is present with dense calcification adjacent to the acetabulum. This is in c lose approximation with the pelvic cortex but appears to be separate.. There is a small curvilinear c alcification anterior to the acetabulum could be a tiny avulsion. Series 9 image 45. Correlate with t he location of the patient's pain and history. Femoral head articulates with the acetabulum. Joint space narrowing is present. No right hip fracture is evident. Soft tissues appear normal. IMPRESSION: 1. TINY CURVILINEAR CALCIFICATION ADJACENT TO THE SUPERIOR ACETABULUM. SMALL AVULSION COULD BE CONSID ERED.
== END | disposition home or self-care (01) ==
LOC: RADCTMAIN 13:02
PROVIDERS: ATTEND Orthopaedic Surgery Sports Medicine
DX: M16.11 Unilateral primary osteoarthritis, right hip (principal)

== ENCOUNTER → 2021-06-29 | Outpatient (CLI) | payer MEDICARE ==
--- NOTE | 2021-06-29 18:15 | XR ---
EXAMINATION TYPE: XR chest 2V DATE OF EXAM: 06/29/2021 COMPARISON: 11/06/2015 HISTORY: Wheezing. TECHNIQUE: FINDINGS: There is no heart failure nor confluent pneumonic infiltrate. Costophrenic angles are clear . Heart size is normal. There are no hilar masses. IMPRESSION: No active cardiopulmonary disease. Normal heart. No change.
== END | disposition home or self-care (01) ==
LOC: RADXRMAIN 17:39
PROVIDERS: ATTEND Internal Medicine Hematology & Oncology
DX: R06.2 Wheezing (principal)
CPT/HCPCS: 71046

== ENCOUNTER → 2021-07-10 | Outpatient (CLI) | payer MEDICARE ==
--- NOTE | 2021-07-10 17:11 | ECHOF ---
Referral Reason:[id number] Chemo exposure MEASUREMENTS -------- HEIGHT: 172.7 cm WEIGHT: 103.4 kg BP: IVSd: 1.3 cm (0.6 - 1.1) LVIDd: 2.5 cm (3.9 - 5.3) LVPWd: 1.3 cm (0.6 - 1.1) IVSs: 2.0 cm LVIDs: 1.5 cm LVPWs: 1.6 cm MV EXCURSION: 16.399 mm (> 18.000) MV EF SLOPE: 94 mm/s (70 - 150) EPSS: 0.8 cm MV E Ady: 0.58 m/s MV DecT: 180 ms MV A Ady: 0.86 m/s MV E/A Ratio: 0.68 RAP: 5.00 mmHg RVSP: 6.94 mmHg FINDINGS -------- This was a technically difficult study with suboptimal views. The left ventricular size is normal. There is mild concentric left ventricular hypertrophy. Overa ll left ventricular systolic function is normal with, an EF between 55 - 60 %. The RV was not well visualized. The left atrial size is normal. The right atrium was not well visualized. Lumason used The aortic valve was not well visualized. The mitral valve is normal. There is trace mitral regurgitation. The tricuspid valve appears structurally normal. Trace tricuspid regurgitation present. Right bogdan tricular systolic pressure is normal at < 35 mmHg. There is no pulmonic regurgitation present. The aortic root size is normal. IVC Not well visulized. There is no pericardial effusion. CONCLUSIONS -------- 1. The left ventricular size is normal. 2. There is mild concentric left ventricular hypertrophy. 3. Overall left ventricular systolic function is normal with, an EF between 55 - 60 %. 4. There is trace mitral regurgitation. 5. Trace tricuspid regurgitation present. 6. There is no pericardial effusion. SPEECH PATHOLOGY SUPERVISOR: Natalie Rogers, SHAKILA
== END | disposition home or self-care (01) ==
LOC: RADECHMAIN 14:42
PROVIDERS: ATTEND Internal Medicine Hematology & Oncology
DX: Z01.818 Encounter for other preprocedural examination (principal); I08.1 Rheumatic disorders of both mitral and tricuspid valves
CPT/HCPCS: C8929; Q9950; 93306

== ENCOUNTER → 2021-07-15 | Outpatient (CLI) | payer MEDICARE | END | disposition home or self-care (01) | LOC: LABWHC1 15:33 | PROVIDERS: ATTEND Registered Nurse Oncology | DX: C50.211 Malignant neoplasm of upper-inner quadrant of right female breast (principal); C92.11 Chronic myeloid leukemia, BCR/ABL-positive, in remission; M34.9 Systemic sclerosis, unspecified; R94.31 Abnormal electrocardiogram [ECG] [EKG]; Z79.899 Other long term (current) drug therapy | CPT/HCPCS: 36415; 93005 ==

== ENCOUNTER → 2021-07-25 | Outpatient (CLI) | payer MEDICARE ==
--- NOTE | 2021-07-26 11:55 | CT ---
EXAMINATION TYPE: CT abdomen pelvis w con DATE OF EXAM: 07/25/2021 COMPARISON: November 04, 2011 HISTORY: Generalized abdominal pain with nausea, bloating, changes in bowel habits and yellow stools. CT DLP: 1718 mGycm CONTRAST: CT scan of the abdomen and pelvis is performed with Oral Contrast and with IV Contrast, patient injec cody with 100 mL of Isovue M300. FINDINGS: LUNG BASES-: No visible nodule. No infiltrate. LIVER/GB: Cholecystectomy clips are in place. Artifact courses through the liver limiting emanation . No space occupying hepatic lesion. Biliary tree is of normal caliber. PANCREAS: No inflammation. No distinct mass. SPLEEN: No splenic enlargement. No lesion seen. ADRENALS: No nodule. No thickening. KIDNEYS/BLADDER: No hydronephrosis. No nephrolithiasis. No distinct renal mass. Urinary bladder g rossly unremarkable. BOWEL: Wall thickening involving the region of the cecum could reflect colitis however underlying mas s is not excluded. Correlate clinically and consider direct visualization. Appendix is not clearly vi sualized. GENITAL ORGANS: No gross abnormality. LYMPH NODES: No greater than 1cm abdominal or pelvic lymph nodes are appreciated. AORTA: No significant abnormality. OSSEOUS STRUCTURES: No significant abnormality is seen. OTHER: No significant additional abnormality is seen. IMPRESSION: 1. Wall thickening involving the region of the cecum could reflect colitis however underlying mass is not excluded. Correlate clinically and consider direct visualization.
== END | disposition home or self-care (01) ==
LOC: RADCTMAIN 11:56
PROVIDERS: ATTEND Internal Medicine Hematology & Oncology
DX: K63.89 Other specified diseases of intestine (principal)
CPT/HCPCS: 74177; Q9967 ×2

== ENCOUNTER 2021-08-11 10:37 | Day surgery (SDC) | payer MEDICARE ==
[2021-08-06 17:44] VITALS: BMI 34.7
[~2021-08-11 10:37] MED LIST changes: -ACETAMINOPHEN TAB 500 MG TAB PO PRN; -DEXAMETHASONE SOD PHOSPHATE 4 MG/ML 1 ML VIAL IV ONE; -HEPARIN SODIUM,PORCINE/PF 5,000 UNIT/0.5 ML SYRINGE SQ PRN; -LIDOCAINE 1% (10MG/ML) FOR IV START INTRADERMA PRN; -MIDAZOLAM 2 MG/2 ML VIAL IV PRN; -Pre Op ABX Message 1 EACH MISC MISCELLANE ONE
[2021-08-11 11:03] VITALS: RESP 16; TEMP 97.9
[2021-08-11 11:10] LABS: Glucose,Whole Blood 107 mg/dL (75-99)
[2021-08-11] MEDS ORDERED: MIDAZOLAM 2 MG/2 ML VIAL ONE (11:21)
[2021-08-11] MEDS ORDERED: fentaNYL (PF) 50 MCG/ML 2 ML AMP ONE (11:21)
[2021-08-11] MEDS ORDERED: PROPOFOL 10 MG/ML 20 ML VIAL IV ONE (11:21)
--- NOTE | 2021-08-11 11:32 | P.GSHP ---
History of Present Illness H&P Date: 08/11/21 Chief Complaint: Dysphagia, change in bowel habits, abnormal CAT scan 61-year-old female with scleroderma and recent diagnosis of breast cancer. Patient with complaints of dysphagia and intermittent vomiting. Describes occasional episodes of constipation. Had a CAT scan performed. CAT scan showed thickening of the cecum suspicious for possible mass. Rare episodes of rectal bleeding. Past Medical History Past Medical History: Asthma, Cancer, Fibromyalgia, GERD/Reflux, Hypertension, Osteoarthritis (OA), Rheumatoid Arthritis (RA), Skin Disorder, Thyroid Disorder Additional Past Medical History / Comment(s): Chronic Myelocytic Leukemia, hypothyroidism, tachycardia, scleredema, RT BREAST CANCER History of Any Multi-Drug Resistant Organisms: None Reported Past Surgical History: Appendectomy, Breast Surgery, Cholecystectomy, Hysterectomy, Orthopedic Surgery, Tonsillectomy Additional Past Surgical History / Comment(s): BREAST BX RT X 3-PARTIAL RT MASTECTOMY. ORIF LT ANKLE. BILAT KNEE SX Past Anesthesia/Blood Transfusion Reactions: Postoperative Nausea & Vomiting (PONV) Smoking Status: Never smoker - Past Family History Brother(s) Family Medical History: Cancer Medications and Allergies Home Medications Medication Instructions Recorded Confirmed Type Albuterol Nebulized [Ventolin 0 unit INHALATION DIRECTED 11/06/15 08/06/21 History Nebulized] Benazepril HCl 20 tab PO DAILY 11/06/15 08/06/21 History Cyclobenzaprine [Flexeril] 10 tab PO Q6HR PRN 11/06/15 08/06/21 History Levothyroxine Sodium [Synthroid] 112 tab PO DAILY 11/06/15 08/06/21 History Loratadine [Claritin] 10 tab PO HS 11/06/15 08/06/21 History Nilotinib HCl [Tasigna] 300 tab PO BID 11/06/15 08/06/21 History Omeprazole [PriLOSEC] 20 tab PO BID 11/06/15 08/06/21 History Sertraline [Zoloft] 50 tab PO HS 11/06/15 08/06/21 History Simvastatin [Zocor] 10 tab PO HS 11/06/15 08/06/21 History amLODIPine [Norvasc] 10 tab PO DAILY 11/06/15 08/06/21 History atenoloL 25 tab PO BID 11/06/15 08/06/21 History Albuterol Inhaler [Ventolin Hfa 60 puff INHALATION DIRECTED PRN 03/18/21 08/06/21 History Inhaler] Ascorbic Acid [Vitamin C] 1,000 mg PO DAILY 04/17/21 08/06/21 History Cholecalciferol [Vitamin D3 (25 25 mcg PO DAILY 04/17/21 08/06/21 History Mcg = 1000 Iu)] Multivitamins, Thera [Multivitamin 1 tab PO DAILY 04/17/21 08/06/21 History (formulary)] Vitamin C/Biotin [Hair, Skin and 1 tab PO DAILY 04/17/21 08/06/21 History Nails] Calcium Carbonate/Vitamin D3 1 each PO QAM 08/06/21 08/06/21 History [Calcium 500 mg-Vit D3 5 mcg (200 Unit)] Calcium Carbonate/Vitamin D3 2 each PO HS 08/06/21 08/06/21 History [Calcium 500 mg-Vit D3 5 mcg (200 Unit)] Celecoxib [CeleBREX] 100 mg PO HS 08/06/21 08/06/21 History Gabapentin [Neurontin] 100 mg PO HS 08/06/21 08/06/21 History Allergies Allergy/AdvReac Type Severity Reaction Status Date / Time aspirin AdvReac Rash/Hives Verified 08/11/21 10:56 clindamycin AdvReac Rash/Hives Verified 08/11/21 10:56 codeine AdvReac Rash/Hives Verified 08/11/21 10:56 ondansetron HCl AdvReac Rash/Hives Verified 08/11/21 10:56 [From Zofran (as hydrochloride)] Penicillins AdvReac Anaphylaxis Verified 08/11/21 10:56 Sulfa (Sulfonamide AdvReac Rash/Hives Verified 08/11/21 10:56 Antibiotics) Surgical - Exam Vital Signs Temp Pulse Resp BP Pulse Ox 97.9 F 92 16 175/92 97 08/11/21 11:00 08/11/21 11:00 08/11/21 11:00 08/11/21 11:00 08/11/21 11:00 Physical exam: General: Well-developed, well-nourished HEENT: Normocephalic, sclerae nonicteric Abdomen: Nontender, nondistended Extremities: No edema Neuro: Alert and oriented Results - Labs Abnormal Lab Results - Last 24 Hours (Table) 08/11/21 Range/Units 11:07 POC Glucose (mg/dL) 107 H (75-99) mg/dL Assessment and Plan (1) Change in bowel habits Narrative/Plan: Proceed with upper and lower endoscopy Current Visit: Yes Status: Acute Code(s): R19.4 - CHANGE IN BOWEL HABIT SNOMED Code(s): 208789426
--- NOTE | 2021-08-11 11:55 | P.PCN ---
Date of Procedure: 08/11/21 Procedure(s) Performed: PREOPERATIVE DIAGNOSIS: Dysphagia, change in bowel habits POSTOPERATIVE DIAGNOSIS: Gastritis with erosions, small hiatal hernia, diverticulosis PROCEDURE: 1. EGD with biopsy 2. Colonoscopy ANESTHESIA: MAC SURGEON: Santana Geller M.D. SPECIMENS: Antrum ENDOSCOPIC PROCEDURE: The patient was on the endoscopy table in the left decubitus position. The Olympus gastroscope was inserted into the oropharynx and passed under direct visualization to the region of the third portion of the duodenum. From that point the scope was slowly withdrawn inspecting all surfaces carefully. There were no neoplastic inflammatory or polypoid lesions throughout the duodenum. The pylorus was widely patent. The stomach was carefully inspected. There was retained liquid and some solids within the stomach consistent with some degree of gastroparesis. The patient had evidence of gastritis with a few erosions. A biopsy of the antrum took place to rule out H. pylori. Retroflexion revealed a small sliding hiatal hernia. The esophagus was then carefully examined. There were no neoplastic inflammatory or polypoid lesions throughout the visualized esophagus. The patient was kept on the endoscopy table in the left decubitus position. The Olympus colonoscope was inserted into the anus and passed under direct visualization to the base of the cecum. The appendiceal orifice was visualized. From that point the scope was slowly withdrawn inspecting all surfaces carefully. There were no neoplastic inflammatory or polypoid lesions throughout the cecum, ascending, transverse, descending, sigmoid and rectum. There was scattered diverticulosis noted throughout the colon. The patient had a suboptimal prep. Digital rectal examination was normal. The patient was taken to the recovery room in stable condition per anesthesia guidelines. RECOMMENDATIONS: Resume diet. Antiacid therapy. Await biopsy results.
[2021-08-11 12:10] VITALS: BP 123/73; PULSE 72
== END 2021-08-11 12:39 | disposition home or self-care (01) ==
LOC: ORWHC2ENDO 10:37
PROVIDERS: ATTEND Surgery
DX: K29.50 Unspecified chronic gastritis without bleeding (principal); K21.9 Gastro-esophageal reflux disease without esophagitis; K44.9 Diaphragmatic hernia without obstruction or gangrene; E03.9 Hypothyroidism, unspecified; I10 Essential (primary) hypertension; J45.909 Unspecified asthma, uncomplicated; M06.9 Rheumatoid arthritis, unspecified; M34.9 Systemic sclerosis, unspecified; M79.7 Fibromyalgia; Z79.1 Long term (current) use of non-steroidal anti-inflammatories (NSAID); Z85.3 Personal history of malignant neoplasm of breast; Z88.0 Allergy status to penicillin; Z88.1 Allergy status to other antibiotic agents; Z88.2 Allergy status to sulfonamides; Z88.5 Allergy status to narcotic agent; Z88.6 Allergy status to analgesic agent; Z88.8 Allergy status to other drugs, medicaments and biological substances; Z90.49 Acquired absence of other specified parts of digestive tract
CPT/HCPCS: 45378; 43239; 88305; J2250; J3010; J2704

== ENCOUNTER → 2021-10-22 | Outpatient (CLI) | payer MEDICARE ==
--- NOTE | 2021-10-23 11:15 | MM ---
Reason for exam: follow-up at short interval from prior study. Last mammogram was performed 6 months ago. History: Patient is postmenopausal, has history of breast cancer at age 60, and has history of other cancer at age 51. Malignant US breast localization RT of the right breast, April 20, 2021. Lumpectomy of the right breast, April 20, 2021. Malignant US biopsy breast VAD RT of the right breast, April 01, 2021. US discontinued breast bx RT of the right breast, February 08, 2018. US discontinued breast bx RT of the right breast, January 20, 2018. Benign stereotactic core biopsy of the right breast, January 24, 2003. Benign excisional biopsy of the right breast, 1997. Benign cyst aspiration of the right breast. Core biopsy of the right breast. Taking other hormone. Physical Findings: Nurse did not find any significant physical abnormalities on exam. MG 3D Diag Mammo W/Cad DEV Bilateral CC and MLO view(s) were taken. Prior study comparison: April 20, 2021, right breast MG diagnostic mammo RT wo CAD. April 01, 2021, right breast MG diagnostic mammo RT wo CAD. There is no discrete abnormality including area of concern at area of pain right breast. Post biopsy changes right upper outer quadrant. These results were verbally communicated with the patient and result sheet given to the patient on 10/22/21. ASSESSMENT: Incomplete: need additional imaging evaluation, BI-RAD 0 RECOMMENDATION: Ultrasound of the right breast.
--- NOTE | 2021-10-23 11:16 | USB ---
Reason for exam: additional evaluation requested from abnormal screening. History: Patient is postmenopausal, has history of breast cancer at age 60, and has history of other cancer at age 51. Malignant US breast localization RT of the right breast, April 20, 2021. Lumpectomy of the right breast, April 20, 2021. Malignant US biopsy breast VAD RT of the right breast, April 01, 2021. US discontinued breast bx RT of the right breast, February 08, 2018. US discontinued breast bx RT of the right breast, January 20, 2018. Benign stereotactic core biopsy of the right breast, January 24, 2003. Benign excisional biopsy of the right breast, 1997. Benign cyst aspiration of the right breast. Core biopsy of the right breast. Taking other hormone. US Breast Limited RT Right limited breast ultrasound including focal area of concern, retroareolar and axilla demonstrates no cystic or solid lesion seen. These results were verbally communicated with the patient and result sheet given to the patient on 10/22/21. ASSESSMENT: Benign, BI-RAD 2 RECOMMENDATION: Follow-up diagnostic mammogram of both breasts in 1 year. Manage on a clinical basis with regard to pain.
== END | disposition home or self-care (01) ==
LOC: RADMAMWWP 14:08
PROVIDERS: ATTEND Surgery
DX: R92.8 Other abnormal and inconclusive findings on diagnostic imaging of breast (principal); Z85.3 Personal history of malignant neoplasm of breast; Z78.0 Asymptomatic menopausal state
CPT/HCPCS: 77066; 76642; G0279; 77062

== ENCOUNTER → 2022-05-31 | Outpatient (CLI) | payer MEDICARE ==
--- NOTE | 2022-06-01 03:56 | MR ---
EXAMINATION TYPE: MR hand LT wo/w con DATE OF EXAM: 05/31/2022 COMPARISON: None HISTORY: Left hand pain, swelling, limited ROM. systemic sclerosis. CONTRAST: Standard multiplanar, multisequence MRI departmental protocol images were obtained without contrast a nd with 10 mL intravenous Gadavist gadolinium contrast. On the STIR images there is abnormal increased signal in the mid and proximal shaft of the first meta carpal. There is also abnormal increased signal in most of the trapezium. There is mild increased flu id signal around the carpal bones. No fracture line seen. Flexor and extensor tendons are intact. The re is some mild spurring at the first carpometacarpal joint. There is some edema in the shaft of the proximal phalanx of the ring finger. No pathologic enhancement seen. IMPRESSION: There is some edema in the first metacarpal and in the trapezium that could be a bone bruise. There i s similar edema seen in the proximal phalanx of the ring finger. No fracture seen. Increased fluid si gnal around the carpal bones and suggestive of some synovitis. No sign of osteomyelitis.
== END | disposition home or self-care (01) ==
LOC: RADMRIMAIN 15:05
PROVIDERS: ATTEND Internal Medicine Rheumatology
DX: R60.9 Edema, unspecified (principal)
CPT/HCPCS: 73220; A9585

== ENCOUNTER → 2022-06-02 | Outpatient (CLI) | payer MEDICARE ==
--- NOTE | 2022-06-03 04:28 | MR ---
EXAMINATION TYPE: MR hand RT wo/w con DATE OF EXAM: 06/02/2022 COMPARISON: None HISTORY: Rt hand pain, swelling, redness, limited movement, rheumatoid vs. osteoarthritis, hx of [place] CONTRAST: Standard multiplanar, multisequence MRI departmental protocol images were obtained without contrast a nd with 10 mL intravenous Gadavist gadolinium contrast. The STIR images show some edema in the proximal shaft of the first metacarpal. The fingers are intact . There is extensive edema in the lunate bone. No fracture line seen. No subluxation. There is some i ncreased joint fluid at the MP joints. No significant hypertrophic spurring seen. No evidence of soft tissue mass. Flexor and extensor tendons appear intact IMPRESSION: There is some bone edema as above in the first metacarpal and in the lunate which is nonspecific and could relate to bone bruise. No fracture line seen. Mild increased joint fluid at the MP joints could be some nonspecific synovitis. No significant spurring seen to suggest hypertrophic osteoarthritis.
== END | disposition home or self-care (01) ==
LOC: RADMRIMAIN 09:03
PROVIDERS: ATTEND Internal Medicine Rheumatology
DX: M34.9 Systemic sclerosis, unspecified (principal); M13.0 Polyarthritis, unspecified; R76.8 Other specified abnormal immunological findings in serum
CPT/HCPCS: 73220; A9585

== ENCOUNTER → 2022-11-02 | Outpatient (CLI) | payer MEDICARE ==
--- NOTE | 2022-11-02 14:35 | MM ---
Reason for Exam: Additional evaluation requested from prior study. Last screening mammogram was performed 12 month(s) ago. Patient History: Menarche at age 12. First Full-Term at age 19. Right ovary removed at age 43. Hysterectomy at age 43. Postmenopausal. Other cancer, age 51. Breast cancer, right, age 60. Benign Cyst Aspiration on the right side. 04/20/2021, Lumpectomy on the Right side. Core Biopsy on the Right side. 1997, Benign Excisional Biopsy on the right side. 04/20/2021, Malignant Core Biopsy on the right side. 04/01/2021, Malignant Core Biopsy on the right side. 01/24/2003, Benign Stereotactic Core Biopsy on the right side. 02/08/2018, US discontinued breast bx RT on the right side. 01/20/2018, US discontinued breast bx RT on the right side. Prior Study Comparison: 01/19/2011 Bilateral Screening Mammogram, [facility]. 08/29/2012 Bilateral Screening Mammogram, [facility]. 10/11/2013 Bilateral Screening Mammogram, [facility]. 12/25/2014 Bilateral Screening Mammogram, [facility]. 12/31/2015 Bilateral Screening Mammogram, [facility]. 01/07/2016 Right Diagnostic Mammogram, [facility]. 01/07/2016 Right Diagnostic Ultrasound, [facility]. 01/03/2017 Bilateral Screening Mammogram, [facility]. 01/12/2017 Right Diagnostic Ultrasound, [facility]. 01/06/2018 Bilateral Screening Mammogram, [facility]. 01/12/2018 Right Diagnostic Ultrasound, [facility]. 08/11/2018 Right Diagnostic Ultrasound, [facility]. 01/26/2019 Bilateral Screening Mammogram, [facility]. 03/09/2021 Bilateral Screening Mammogram, [facility]. 03/13/2021 Right Diagnostic Mammogram, [facility]. 03/13/2021 Right Diagnostic Ultrasound, [facility]. 04/01/2021 Right Diagnostic Mammogram, [facility]. 04/20/2021 Right Diagnostic Mammogram, [facility]. 10/22/2021 Bilateral Diagnostic Mammogram, [facility]. 10/22/2021 Right Diagnostic Ultrasound, [facility]. Tissue Density: There are scattered fibroglandular densities. Findings: Analyzed By CAD. Post surgical changes to the right breast. There is no new suspicious calcifications, distortions or masses. Overall Assessment: Benign, BI-RAD 2 Management: Screening Mammogram of both breasts in 1 year. A clinical breast exam by your physician is recommended on an annual basis and results should be correlated with mammographic findings. This exam should not preclude additional follow-up of suspicious palpable abnormalities. Results were given to the patient verbally at the time of exam. Electronically signed and approved by: Joseph Womack DO
== END | disposition home or self-care (01) ==
LOC: RADMAMWWP 14:08
PROVIDERS: ATTEND Obstetrics & Gynecology
DX: R92.8 Other abnormal and inconclusive findings on diagnostic imaging of breast (principal); Z78.0 Asymptomatic menopausal state
CPT/HCPCS: 77066; G0279; 77062

== ENCOUNTER → 2023-02-18 | Outpatient (CLI) | payer MEDICARE ==
--- NOTE | 2023-02-21 08:09 | USB ---
Reason for Exam: Clinical finding. Patient History: Menarche at age 12. First Full-Term at age 19. Right ovary removed at age 43. Hysterectomy at age 43. Postmenopausal. Other cancer, age 51. Breast cancer, right, age 60. Benign Cyst Aspiration on the right side. 04/20/2021, Lumpectomy on the Right side. Core Biopsy on the Right side. 1997, Benign Excisional Biopsy on the right side. 04/20/2021, Malignant Core Biopsy on the right side. 04/01/2021, Malignant Core Biopsy on the right side. 01/24/2003, Benign Stereotactic Core Biopsy on the right side. 02/08/2018, US discontinued breast bx RT on the right side. 01/20/2018, US discontinued breast bx RT on the right side. Prior Study Comparison: 04/20/2021 Right Diagnostic Mammogram, [facility]. 10/22/2021 Bilateral Diagnostic Mammogram, [facility]. 10/22/2021 Right Diagnostic Ultrasound, [facility]. 11/02/2022 Bilateral MG 3D diag mammo w/cad DEV, [facility]. Findings: The area of palpable concern of the right breast and the axilla of the right breast were scanned. Targeted ultrasound shows no worrisome solid cystic mass or fluid collection. Overall Assessment: Negative, BI-RAD 1 Management: Clinical Management of the right breast. Palpable abnormality right breast managed clinically. Results were given to the patient verbally at the time of exam. Electronically signed and approved by: Brett Summers M.D.
== END | disposition home or self-care (01) ==
LOC: RADUSWWP 14:46
PROVIDERS: ATTEND Surgery
DX: N60.01 Solitary cyst of right breast (principal); Z78.0 Asymptomatic menopausal state; R59.1 Generalized enlarged lymph nodes

== ENCOUNTER → 2023-07-27 | Outpatient (CLI) | payer MEDICARE ==
[2023-07-27 19:20] LABS: Blood Urea Nitrogen 8.8 mg/dL (9.0-27.0); Carbon Dioxide 20.6 mmol/L (21.6-31.8); Chloride 99 mmol/L (96-109); Sodium 131 mmol/L (135-145)
[2023-07-27 21:01] LABS: HCT 40.3 % (37.2-46.3); HGB 12.8 d/dL (12.0-15.0); MCH 26.5 pg (27.0-32.0); MCHC 31.8 d/dL (32.0-37.0); MCV 83.4 FL (80.0-97.0); Mean Platelet Volume 9.2 FL (9.5-12.2); NRBC Per 100 WBC 0 X 10*3/uL (0.00-0.01); Platelet Count 272 X 10*3/uL (140-440); RBC 4.83 X 10*6/uL (4.10-5.20); RDW 15.1 % (11.5-14.5)
== END | disposition home or self-care (01) ==
LOC: LABPAT 14:17
PROVIDERS: ATTEND Internal Medicine Interventional Cardiology
DX: Z01.812 Encounter for preprocedural laboratory examination (principal); R07.9 Chest pain, unspecified; R94.39 Abnormal result of other cardiovascular function study
CPT/HCPCS: 36415; 80051; 82565; 84520; 85027

== ENCOUNTER 2023-07-29 06:17 | Day surgery (SDC) | payer MEDICARE ==
[~2023-07-29 06:17] MED LIST changes: +ALPRAZolam 0.25 MG TAB PO PRN; +ALPRAZolam 0.5 MG TAB PO PRN; +ASPIRIN 325 MG TAB PO STA; +HEPARIN SODIUM,PORCINE (1 ML) 2,500 UNIT in SODIUM CHLORIDE 0.9% 250 ML IRRIGATION PRN; +HEPARIN SODIUM,PORCINE 10,000 UNIT in SODIUM CHLORIDE 0.9% 1,000 ML IRRIGATION PRN; -LACTATED RINGERS 1,000 ML IV SCH; +NITROGLYCERIN SL TABS 0.4 MG TAB SUBLINGUAL PRN; +SODIUM CHLORIDE 0.9% 1,000 ML in EMPTY BAG 1 BAG IV SCH
[2023-07-29] MEDS ORDERED: SODIUM CHLORIDE 0.9% 1,000 ML IV ONE (06:52)
[2023-07-29 07:19] VITALS: RESP 16; TEMP 97.9
[2023-07-29] MEDS ORDERED: HEPARIN SODIUM 1,000 UN/ML (10ML VL) ONE (07:26)
[2023-07-29] MEDS ORDERED: VERAPAMIL 2.5 MG/ML 2 ML AMP ONE (07:26)
[2023-07-29] MEDS ORDERED: fentaNYL (PF) 50 MCG/ML 2 ML AMP ONE (07:27)
[2023-07-29] MEDS ORDERED: fentaNYL (PF) 50 MCG/ML 2 ML AMP IVP ONE (07:43)
[2023-07-29] MEDS ORDERED: LIDOCAINE 1% INJ 10MG/ML (5 ML VIAL-PF) SQ ONE (07:45)
[2023-07-29] MEDS ORDERED: MIDAZOLAM 2 MG/2 ML VIAL IVP ONE (07:45)
[2023-07-29] MEDS ORDERED: VERAPAMIL SYRINGE (5 MG/10 ML) INTRAARTER ONE (07:47)
[2023-07-29] MEDS ORDERED: HEPARIN SODIUM 1,000 UN/ML (10ML VL) IVP ONE (07:53)
[2023-07-29] MEDS ORDERED: IOPAMIDOL-370 50ML BTL INJ ONE (08:03)
[2023-07-29] MEDS ORDERED: RX INFO: IV CONTRAST WAS GIVEN 1 EACH MISC MISCELLANE PRN (08:10)
[2023-07-29] MEDS ORDERED: HYDROcodone/APAP 10-325MG 1 EACH TAB PO PRN (08:11)
[2023-07-29] MEDS ORDERED: NON FORMULARY DRUG (Celecoxib 100 MG Cap) PO PRN (08:11)
[2023-07-29] MEDS ORDERED: ALBUTEROL HFA INHALER INHALATION PRN (08:11)
[2023-07-29] MEDS ORDERED: CYCLOBENZAPRINE 10 MG TAB PO PRN (08:11)
[2023-07-29] MEDS ORDERED: SODIUM CHLORIDE 0.9% 1,000 ML IV SCH (08:15)
--- NOTE | 2023-07-29 08:17 | P.CARDCATH ---
Date of Procedure: 07/29/23 Description of Procedure: Cardiac Catheterization: The patient is a 63-year-old female with a history of hypertension, hyperlipidemia who presented to symptoms of progressive dyspnea and episodes of chest discomfort. She had an abnormal MPI. Recommendations were made regarding cardiac catheterization, the risks and the complications were discussed with the patient who is in full understanding and agreement. Procedure Description: Patient was brought to cardiac cath tech in fasting semi-sedated state after receiving Fentanyl and Benadryl achieiving moderate conscious sedated state. Using Xylocaine Anesthesia and modified Seldinger technique, a 6-[place]uv[place] sheath was introduced in the right radial artery . Subsequently, selective coronary angiography was performed using a 5-[place]uvian 3.5 bend Zee catheter. Multiple views of the coronary artery including hemiaxial views were obtained. The 5-[place]uvian pigtail catheter was used to cross the aortic valve and LVEDP was calculated. Following that, catheter and sheath were removed. Hemostasis was obtained with deployment of vascular band . There was no immediate complication. Patient was returned to room in stable condition. Of note, the patient received a total of 5000 units of intravenous heparin as well as intra-arterial verapamil. Findings: Left main: This is a large-size vessel, bifurcating into LAD and left circumflex, left main is no obstructive disease LAD: This is a large-size vessel reaching to the apex with a large diagonal branch proximally, the LAD and its branches have no obstructive disease Left circumflex: Is is a nondominant vessel giving rise to 3 obtuse marginal branch, the first one is the largest and caliber, the left circumflex and its branches have no obstructive disease RCA: This is a dominant vessel, large in caliber, bifurcating into PDA and PLV. The right coronary artery has no obstructive disease Left Ventriculogram: Not performed Hemodynamics: There was no gradient across the aortic valve, LVEDP was 6-8 mmHg Conclusion: 1. Normal coronary arteries 2. Right dominance 3. Normal LVEDP Recommendations: I see no evidence of obstructive disease to explain her symptoms, we will continue on medical therapy. The findings and the recommendations were discussed with the patient and the family and they were in full understanding and agreement. Duration of sedation is 13 minutes.
[2023-07-29] MEDS ORDERED: NON FORMULARY DRUG (Nilotinib Hcl [Tasigna] 150 MG Capsule) PO SCH (09:00)
[2023-07-29] MEDS ORDERED: amLODIPine 10 MG TAB PO SCH (09:00)
[2023-07-29] MEDS ORDERED: NON FORMULARY DRUG (Omeprazole [Prilosec] 20 MG Capsule.Dr) PO SCH (09:00)
[2023-07-29] MEDS ORDERED: LEVOTHYROXINE 112 MCG TAB PO SCH (09:00)
[2023-07-29] MEDS ORDERED: atenoloL 25 MG TAB PO SCH (09:00)
[2023-07-29] MEDS ORDERED: NON FORMULARY DRUG (Benazepril Hcl [Benazepril Hcl] 20 MG Tablet) PO SCH (09:00)
[2023-07-29 12:36] VITALS: BP 129/60; PULSE 71
[2023-07-29] MEDS ORDERED: SERTRALINE 50 MG TAB PO SCH (21:00)
[2023-07-29] MEDS ORDERED: GABAPENTIN 100 MG CAP PO SCH (21:00)
[2023-07-29] MEDS ORDERED: NON FORMULARY DRUG (Simvastatin 10 MG Tab) PO SCH (21:00)
== END 2023-07-29 12:18 | disposition home or self-care (01) ==
LOC: CATHCVL 06:17
PROVIDERS: ATTEND Internal Medicine Interventional Cardiology
DX: R94.39 Abnormal result of other cardiovascular function study (principal); E78.5 Hyperlipidemia, unspecified; M34.9 Systemic sclerosis, unspecified; I10 Essential (primary) hypertension; Z88.2 Allergy status to sulfonamides; Z88.6 Allergy status to analgesic agent; Z88.5 Allergy status to narcotic agent; Z88.8 Allergy status to other drugs, medicaments and biological substances; Z85.3 Personal history of malignant neoplasm of breast; Z87.891 Personal history of nicotine dependence; Z79.899 Other long term (current) drug therapy; Z85.6 Personal history of leukemia
CPT/HCPCS: 93458; 99152; C1769 ×2; C1894; J2250; J2001; J3010; J1644; Q9967

== ENCOUNTER 2023-08-23 05:46 | Day surgery (SDC) | payer MEDICARE ==
[2023-08-18 15:07] VITALS: BMI 33.0
[2023-08-23] MEDS ORDERED: ALPRAZolam 0.5 MG TAB PO PRN (06:07)
[2023-08-23] MEDS ORDERED: ALPRAZolam 0.25 MG TAB PO PRN (06:07)
[2023-08-23] MEDS ORDERED: ATORVASTATIN 80 MG TAB PO STA (06:07)
[2023-08-23] MEDS ORDERED: SODIUM CHLORIDE 0.9% 1,000 ML in EMPTY BAG 1 BAG IV SCH (06:07)
[2023-08-23] MEDS ORDERED: NITROGLYCERIN SL TABS 0.4 MG TAB SUBLINGUAL PRN (06:07)
[2023-08-23] MEDS ORDERED: HEPARIN SODIUM,PORCINE (1 ML) 2,500 UNIT in SODIUM CHLORIDE 0.9% 250 ML IRRIGATION PRN (06:07)
[2023-08-23] MEDS ORDERED: ASPIRIN 325 MG TAB PO STA (06:07)
[2023-08-23] MEDS ORDERED: HEPARIN SODIUM,PORCINE 10,000 UNIT in SODIUM CHLORIDE 0.9% 1,000 ML IRRIGATION PRN (06:07)
[2023-08-23] MEDS ORDERED: SODIUM CHLORIDE 0.9% 1,000 ML IV ONE (06:23)
[2023-08-23 06:38] LABS: Basophils # (A) 0.1 k/uL (0-0.2); Basophils % (A) 1 %; Eosinophils # (A) 0.4 k/uL (0-0.7); Eosinophils % (A) 4 %; HCT 41.9 % (34.0-46.0); HGB 13.7 gm/dL (11.4-16.0); Lymphocytes # (A) 2.2 k/uL (1.0-4.8); Lymphocytes % (A) 27 %; MCH 27.1 pg (25.0-35.0); MCHC 32.8 g/dL (31.0-37.0); MCV 82.6 fL (80.0-100.0); Mean Platelet Volume 7.1; Monocytes # (A) 0.6 k/uL (0-1.0); Monocytes % (A) 7 %; Neutrophils # (A) 4.9 k/uL (1.3-7.7); Neutrophils % (A) 58 %; Platelet Count 277 k/uL (150-450); RBC 5.07 m/uL (3.80-5.40); WBC 8.4 k/uL (3.8-10.6)
[2023-08-23] MEDS ORDERED: ALPRAZolam 0.25 MG TAB PO ONE (06:40)
[2023-08-23 06:53] LABS: African American GFR (CKD) >90 (>60 ml/min/1.73 sqM); Anion Gap 14 mmol/L; Blood Urea Nitrogen 8 mg/dL (7-17); Carbon Dioxide 20 mmol/L (22-30); Chloride 98 mmol/L (98-107); Glucose 113 mg/dL (74-99); Non-African American GFR(CKD) >90 (>60 ml/min/1.73 sqM); Potassium 4.5 mmol/L (3.5-5.1); Sodium 132 mmol/L (137-145)
[2023-08-23 06:59] VITALS: TEMP 98.5
[2023-08-23] MEDS ORDERED: fentaNYL (PF) 50 MCG/ML 2 ML AMP ONE (07:23)
[2023-08-23] MEDS ORDERED: MIDAZOLAM 2 MG/2 ML VIAL IVP ONE (07:25)
[2023-08-23] MEDS ORDERED: fentaNYL (PF) 50 MCG/1 ML VIAL IVP ONE (07:30)
[2023-08-23] MEDS ORDERED: RX INFO: IV CONTRAST WAS GIVEN 1 EACH MISC MISCELLANE PRN (08:05)
[2023-08-23 08:09] LABS: O2 Sat Blood Gas 96.1 %
[2023-08-23 08:11] LABS: O2 Sat Blood Gas 68.5 %
[2023-08-23] MEDS ORDERED: SODIUM CHLORIDE 0.9% 1,000 ML IV SCH (08:15)
--- NOTE | 2023-08-23 08:21 | P.CARDCATH ---
Date of Procedure: 08/23/23 Description of Procedure: Cardiac Catheterization: The patient has a history of interstitial lung disease, followed at [facility] and is being evaluated regarding her pulmonary hypertension. Recommendations were made regarding right heart cardiac catheterization, the risks and the complications were discussed with the patient who is in full understanding and agreement. Procedure Description: Patient was brought to microbiology lab manager in fasting semi-sedated state after receiving Fentanyl and Benadryl achieiving moderate conscious sedated state. Using Xylocaine Anesthesia the intravenous access in the right basilic vein was exchanged to a 6-[place] sheath . Right heart catheterization was performed using a [place]-Shailesh catheter, multiple pressures samples were obtained. Arterial sample was obtained from the right femoral artery using micropuncture access needle. At the end of the procedure the catheter was removed, hemostasis was obtained with compression of the right brachial area. There was no immediate complications. Findings: Hemodynamics: Pulmonary artery systolic 48, diastolic of 30 with a mean of 33 mmHg, pulmonary Wedge pressure A wave 25, V-wave 26 with a mean of 18 mmHg. Right ventricular systolic pressure 45 with end-diastolic of 18 mmHg right atrial A wave of 16, V-wave of 15 with a mean of 14 mmHg. Cardiac output by thermodilution 6.4 L/m with an index of 3 L/m/m, right atrium saturation: 69%, arterial desaturation 96% Conclusion: 1. Mild to moderate pulmonary hypertension 2. Normal cardiac output Recommendations: The patient will continue on her present medical regimen, she will follow-up at [facility] regarding her interstitial lung disease. The findings and the recommendations were discussed with the patient and the family and they were in full understanding and agreement. Duration of sedation is 20 minutes.
[2023-08-23] MEDS ORDERED: amLODIPine 10 MG TAB PO SCH (09:00)
[2023-08-23] MEDS ORDERED: atenoloL 25 MG TAB PO SCH (09:00)
[2023-08-23] MEDS ORDERED: NON FORMULARY DRUG (Benazepril Hcl [Benazepril Hcl] 20 MG Tablet) PO SCH (09:00)
[2023-08-23 11:24] VITALS: RESP 16
[2023-08-23 14:16] VITALS: BP 137/66; PULSE 72
== END 2023-08-23 10:58 | disposition home or self-care (01) ==
LOC: CATHCVL 05:46
PROVIDERS: ATTEND Internal Medicine Interventional Cardiology
DX: I27.20 Pulmonary hypertension, unspecified (principal); M34.9 Systemic sclerosis, unspecified; I10 Essential (primary) hypertension; E78.5 Hyperlipidemia, unspecified; J98.8 Other specified respiratory disorders; Z88.6 Allergy status to analgesic agent; Z88.8 Allergy status to other drugs, medicaments and biological substances; Z88.5 Allergy status to narcotic agent; Z88.0 Allergy status to penicillin; Z88.2 Allergy status to sulfonamides; Z79.1 Long term (current) use of non-steroidal anti-inflammatories (NSAID); Z79.899 Other long term (current) drug therapy
CPT/HCPCS: 93451; 80048; 85018; 82810; 85025; C1894; C1751; C1769; J2250; J3010

== ENCOUNTER → 2024-03-02 | Outpatient (CLI) | payer MEDICARE ==
--- NOTE | 2024-03-05 09:35 | MM ---
Reason for Exam: Screening (asymptomatic). Last mammogram was performed 1 year(s) and 4 month(s) ago. Patient History: Menarche at age 12. First Full-Term at age 19. Right ovary removed at age 43. Hysterectomy at age 43. Postmenopausal. Other cancer, age 51. Breast cancer, right, age 60. Benign Cyst Aspiration on the right side. 04/20/2021, Lumpectomy on the Right side. Core Biopsy on the Right side. 1997, Benign Excisional Biopsy on the right side. 04/20/2021, Malignant Core Biopsy on the right side. 04/01/2021, Malignant Core Biopsy on the right side. 01/24/2003, Benign Stereotactic Core Biopsy on the right side. 02/08/2018, US discontinued breast bx RT on the right side. 01/20/2018, US discontinued breast bx RT on the right side. Prior Study Comparison: 04/20/2021 Right Diagnostic Mammogram, [facility]. 10/22/2021 Bilateral Diagnostic Mammogram, [facility]. 11/02/2022 Bilateral MG 3D diag mammo w/cad DEV, [facility]. Tissue Density: The breasts are almost entirely fatty. Findings: Analyzed By CAD. Right breast surgical clips. Right breast: There is no suspicious group of microcalcifications or new suspicious mass. Left breast: There is no suspicious group of microcalcifications or new suspicious mass. Overall Assessment: Benign, BI-RAD 2 Management: Screening Mammogram of both breasts in [address] [facility] will attempt to contact patient to return for supplemental views and ultrasound if indicated. Patient should continue monthly self-breast exams. A clinical breast exam by your physician is recommended on an annual basis. This exam should not preclude additional follow-up of suspicious palpable abnormalities. Note on Devi scores and lifetime risk: 1. A Devi score greater than 3% is considered moderate risk. If this is the case, consider specialist referral to assess eligibility for a risk reducing agent. 2. If overall lifetime risk for the development of breast cancer is 20% or higher, the patient may qualify for future screening with alternating mammogram and breast MRI. Electronically signed and approved by: Joseph Womack DO
== END | disposition home or self-care (01) ==
LOC: RADMAMWWP 10:30
PROVIDERS: ATTEND Surgery
DX: Z12.31 Encounter for screening mammogram for malignant neoplasm of breast (principal); Z78.0 Asymptomatic menopausal state; Z85.3 Personal history of malignant neoplasm of breast
CPT/HCPCS: 77063; 77067

== ENCOUNTER 2024-10-29 18:13 | Emergency (ER) | payer MEDICARE ==
[2024-10-29 18:43] VITALS: RESP 18
[2024-10-29 18:51] VITALS: TEMP 98.6
--- NOTE | 2024-10-29 18:59 | ED ---
Allergic Reaction HPI - General Source: patient, RN notes reviewed Mode of arrival: ambulatory Limitations: no limitations <VivScott - Last Filed: 10/29/24 18:58> - General Source: patient, RN notes reviewed, old records reviewed Mode of arrival: ambulatory Limitations: no limitations - History of Present Illness MD Complaint: allergic reaction, facial swelling, other (Abdominal pain nausea vomiting diarrhea weakness) Exposure: medication Symptoms: rash, facial swelling, dizziness, nausea, vomiting, abdominal pain Treatment Prior to Arrival: none Previous Allergy History: none <David Elkins - Last Filed: 10/29/24 22:30> - General Chief complaint: Allergic Reaction Stated complaint: short of breath, rash, stomach pains poss reaction Time Seen by Provider: 10/29/24 18:27 - History of Present Illness Initial Comments: Quick note: This is a 64-year-old female presenting for possible medication infusion reaction received on 10/26/2024. Patient endorses receiving infusion of rituximab with subsequent symptoms in the days following. Endorses facial swelling, abdominal pain (04/11), N/V/D, fatigue, chest/throat tightness, headache and minor difficulty breathing. (Scott Nam) This is a 64 female for infusion reaction symptoms have been increasing facial swelling occasional abdominal pain with nausea vomiting diarrhea and fatigue insomnia difficulty breathing difficulty sleeping abdominal pain (David Elkins) - Related Data Home Medications Medication Instructions Recorded Confirmed Benazepril HCl 20 mg PO DAILY 11/06/15 08/23/23 Cyclobenzaprine [Flexeril] 10 tab PO Q8H PRN 11/06/15 08/18/23 Levothyroxine Sodium [Synthroid] 112 mcg PO DAILY 11/06/15 08/18/23 Nilotinib HCl [Tasigna] 300 mg PO BID 11/06/15 08/18/23 Omeprazole [PriLOSEC] 20 tab PO DAILY 11/06/15 08/23/23 Sertraline [Zoloft] 150 mg PO HS 11/06/15 08/18/23 Simvastatin [Zocor] 10 mg PO HS 11/06/15 08/18/23 amLODIPine [Norvasc] 5 mg PO DAILY 11/06/15 08/23/23 atenoloL 25 tab PO BID 11/06/15 08/23/23 Albuterol Inhaler [Ventolin Hfa 60 puff INHALATION DIRECTED PRN 03/18/21 08/23/23 Inhaler] Celecoxib [CeleBREX] 200 mg PO DAILY PRN 08/06/21 08/18/23 Gabapentin [Neurontin] 300 mg PO HS 08/06/21 08/18/23 HYDROcodone/APAP 10-325MG [Willard 1 tab PO Q4-6H PRN 07/28/23 08/23/23 10-325] Allergies Allergy/AdvReac Type Severity Reaction Status Date / Time aspirin AdvReac Rash/Hives, Verified 10/29/24 18:51 nausea clindamycin AdvReac Rash/Hives Verified 10/29/24 18:51 codeine AdvReac Rash/Hives Verified 10/29/24 18:51 ondansetron HCl AdvReac Rash/Hives Verified 10/29/24 18:51 [From Zofran (as hydrochloride)] Penicillins AdvReac Anaphylaxis Verified 10/29/24 18:51 Sulfa (Sulfonamide AdvReac Rash/Hives Verified 10/29/24 18:51 Antibiotics) Review of Systems ROS Other: All systems not noted in ROS Statement are negative. <Scott Nam - Last Filed: 10/29/24 18:58> ROS Other: All systems not noted in ROS Statement are negative. <David Elkins - Last Filed: 10/29/24 22:30> ROS Statement: Those systems with pertinent positive or pertinent negative responses have been documented in the HPI. Past Medical History Past Medical History: Asthma, Cancer, Fibromyalgia, GERD/Reflux, Hypertension, Osteoarthritis (OA), Rheumatoid Arthritis (RA), Skin Disorder, Thyroid Disorder Additional Past Medical History / Comment(s): Chronic Myelocytic Leukemia, hypothyroidism, tachycardia, scleredema, RT BREAST CANCER History of Any Multi-Drug Resistant Organisms: None Reported Past Surgical History: Appendectomy, Breast Surgery, Cholecystectomy, Heart Catheterization, Hysterectomy, Orthopedic Surgery, Tonsillectomy Additional Past Surgical History / Comment(s): BREAST BX RT X 3-PARTIAL RT MASTECTOMY. ORIF LT ANKLE. BILAT KNEE SX Past Anesthesia/Blood Transfusion Reactions: Postoperative Nausea & Vomiting (PONV) Past Psychological History: Anxiety, Depression Smoking Status: Never smoker Past Alcohol Use History: None Reported Past Drug Use History: None Reported - Past Family History Brother(s) Family Medical History: Cancer <Scott Nam - Last Filed: 10/29/24 18:58> General Exam Limitations: no limitations <Scott Nam - Last Filed: 10/29/24 18:58> General appearance: alert, in no apparent distress Head exam: Present: atraumatic, normocephalic, normal inspection Eye exam: Present: normal appearance, PERRL, EOMI. Absent: scleral icterus, conjunctival injection, periorbital swelling ENT exam: Present: normal exam, mucous membranes moist Neck exam: Present: normal inspection. Absent: tenderness, meningismus, lymphadenopathy Respiratory exam: Present: normal lung sounds bilaterally. Absent: respiratory distress, wheezes, rales, rhonchi, stridor Cardiovascular Exam: Present: regular rate, normal rhythm, normal heart sounds. Absent: systolic murmur, diastolic murmur, rubs, gallop, clicks GI/Abdominal exam: Present: soft, normal bowel sounds. Absent: distended, tenderness, guarding, rebound, rigid Extremities exam: Present: normal inspection, full ROM, normal capillary refill. Absent: tenderness, pedal edema, joint swelling, calf tenderness Back exam: Present: normal inspection Neurological exam: Present: alert, oriented X3, CN II-XII intact Psychiatric exam: Present: normal affect, normal mood Skin exam: Present: warm, dry, intact, normal color. Absent: rash <David Elkins - Last Filed: 10/29/24 22:30> - General Exam Comments Initial Comments: Visual Physical Exam Vital signs reviewed General: Well-appearing, nontoxic, no acute distress. Head: Normocephalic, atraumatic Eyes: PERRLA, EOMI ENT: Airway patent Chest: Nonlabored breathing Skin: No visual rash, normal skin tone Neuro: Alert and oriented 3 Musculoskeletal: No gross abnormalities (Scott Nam) Course <David Elkins - Last Filed: 10/29/24 22:30> Vital Signs 10/29/24 10/29/24 18:38 22:26 Temperature 98.6 F Pulse Rate 85 89 Respiratory 18 18 Rate Blood Pressure 147/82 149/78 O2 Sat by Pulse 97 93 L Oximetry - Reevaluation(s) Reevaluation #1: 10/29/24 21:33 Medical records reviewed (David Elkins) Reevaluation #2: 10/29/24 21:33 Patient symptoms improved (David Elkins) Reevaluation #3: 10/29/24 21:33 Patient informed of results questions answered (David Elkins) Reevaluation #4: Was pt. sent in by a medical professional or institution ([facility], [facility], urgent care, hospital, or [facility]...) When possible be specific @ -no Did you speak to anyone other than the patient for history (EMS, parent, family, police, friend...)? What history was obtained from this source @ -no Did you review nursing and triage notes (agree or disagree)? Why? @ -agree Are old charts reviewed (outside hosp., previous admission, EMS record, old EKG, old radiological studies, urgent care reports/EKG's, [facility] records)? Report findings @ -yes Differential Diagnosis (chest pain, altered mental status, abdominal pain women, abdominal pain men, vaginal bleeding, weakness, fever, dyspnea, syncope, headache, dizziness, GI bleed, back pain, seizure, CVA, palpatations, mental health, musculoskeletal)? @ -prior EKG interpreted by me (3pts min.). @ -yes X-rays interpreted by me (1pt min.). @ -yes negative for acute disease CT interpreted by me (1pt min.). @ -no U/S interpreted by me (1pt. min.). @ -no What testing was considered but not performed or refused? (CT, X-rays, U/S, labs)? Why? @ -none What meds were considered but not given or refused? Why? @ -none Did you discuss the management of the patient with other professionals (professionals i.e. [facility], [facility], lab, RT, psych nurse, social work professor, book sewer, teacher, property portfolio officer, rn case manager hospice)? Give summary @ -no Was smoking cessation discussed for >3mins.? @ -no Was critical care preformed (if so, how long)? @ -no Were there social determinants of health that impacted care today? How? (Homelessness, low income, unemployed, alcoholism, drug addiction, transportation, low edu. Level, literacy, decrease access to med. care, half-way, rehab)? @ -none Was there de-escalation of care discussed even if they declined (Discuss DNR or withdrawal of care, Hospice)? DNR status @ -no What co-morbidities impacted this encounter? (DM, HTN, Smoking, COPD, CAD, Cancer, CVA, ARF, Chemo, Hep., AIDS, mental health diagnosis, sleep apnea, morbid obesity)? @ -none Was patient admitted / discharged? Hospital course, mention meds given and route, prescriptions, significant lab abnormalities, going to OR and other pertinent info. @ - Undiagnosed new problem with uncertain prognosis? @ -no Drug Therapy requiring intensive monitoring for toxicity (Heparin, Nitro, Insulin, Cardizem)? @ -no Were any procedures done? @ -no Diagnosis/symptom? @ - Acute, or Chronic, or Acute on Chronic? @ -Acute Uncomplicated (without systemic symptoms) or Complicated (systemic symptoms)? @ -Complicated Side effects of treatment? @ -no Exacerbation, Progression, or Severe Exacerbation? @ -exacerbation Poses a threat to life or bodily function? How? (Chest pain, [place], AL, pneumonia, PE, COPD, DKA, ARF, appy, cholecystitis, CVA, Diverticulitis, Homicidal, Suicidal, threat to staff... and all critical care pts) @ -yes (David Elkins) Medical Decision Making <Scott Nam - Last Filed: 10/29/24 18:58> - Lab Data Result diagrams: 10/29/24 19:43 10/29/24 19:43 - EKG Data -: EKG Interpreted by Me (EKG is sinus 75 MS 139 QRS 71 QTc 400) - Radiology Data Radiology results: report reviewed (Chest x-ray has chronic changes), image reviewed <David Elkins - Last Filed: 10/29/24 22:30> - Medical Decision Making I completed the quick note portion of this chart signed MINDI Larios (Scott Nam) 64 female to ER with severe insomnia weakness medication reaction feeling much improved here in the ER with hydration and symptom management. Patient can be discharged home (David Elkins) - Lab Data Lab Results 10/29/24 10/29/24 10/29/24 Range/Units 19:43 19:43 19:43 WBC 9.5 (3.8-10.6) k/uL RBC 4.94 (3.80-5.40) m/uL Hgb 13.1 (11.4-16.0) gm/dL Hct 39.0 (34.0-46.0) % MCV 78.9 L (80.0-100.0) fL MCH 26.5 (25.0-35.0) pg MCHC 33.6 (31.0-37.0) g/dL RDW 19.4 H (11.5-15.5) % Plt Count 255 (150-450) k/uL MPV 6.9 Neutrophils % 68 % Lymphocytes % 17 % Monocytes % 10 % Eosinophils % 2 % Basophils % 1 % Neutrophils # 6.5 (1.3-7.7) k/uL Lymphocytes # 1.6 (1.0-4.8) k/uL Monocytes # 0.9 (0-1.0) k/uL Eosinophils # 0.2 (0-0.7) k/uL Basophils # 0.1 (0-0.2) k/uL Anisocytosis Slight Microcytosis Slight PT 10.7 (10.0-12.5) sec INR 1.0 (<1.2) APTT 24.2 (22.0-30.0) sec Sodium 130 L (137-145) mmol/L Potassium 4.7 (3.5-5.1) mmol/L Chloride 96 L (98-107) mmol/L Carbon Dioxide 24 (22-30) mmol/L Anion Gap 10 mmol/L BUN 12 (7-17) mg/dL Creatinine 0.80 (0.52-1.04) mg/dL Est GFR (CKD-EPI)AfAm 90 (>60 ml/min/1.73 sqM) Est GFR (CKD-EPI)NonAf 78 (>60 ml/min/1.73 sqM) Glucose 93 (74-99) mg/dL Calcium 9.1 (8.4-10.2) mg/dL Total Bilirubin 0.4 (0.2-1.3) mg/dL AST 22 (14-36) U/L ALT 20 (4-34) U/L Alkaline Phosphatase 52 (38-126) U/L Troponin I (0.000-0.034) ng/mL C-Reactive Protein <0.5 (<1.0) mg/dL Total Protein 6.9 (6.3-8.2) g/dL Albumin 4.4 (3.5-5.0) g/dL Influenza Type A (PCR) (Not Detectd) Influenza Type B (PCR) (Not Detectd) RSV (PCR) (Not Detectd) SARS-CoV-2 (PCR) (Not Detectd) 10/29/24 10/29/24 Range/Units 19:43 19:43 WBC (3.8-10.6) k/uL RBC (3.80-5.40) m/uL Hgb (11.4-16.0) gm/dL Hct (34.0-46.0) % MCV (80.0-100.0) fL MCH (25.0-35.0) pg MCHC (31.0-37.0) g/dL RDW (11.5-15.5) % Plt Count (150-450) k/uL MPV Neutrophils % % Lymphocytes % % Monocytes % % Eosinophils % % Basophils % % Neutrophils # (1.3-7.7) k/uL Lymphocytes # (1.0-4.8) k/uL Monocytes # (0-1.0) k/uL Eosinophils # (0-0.7) k/uL Basophils # (0-0.2) k/uL Anisocytosis Microcytosis PT (10.0-12.5) sec INR (<1.2) APTT (22.0-30.0) sec Sodium (137-145) mmol/L Potassium (3.5-5.1) mmol/L Chloride (98-107) mmol/L Carbon Dioxide (22-30) mmol/L Anion Gap mmol/L BUN (7-17) mg/dL Creatinine (0.52-1.04) mg/dL Est GFR (CKD-EPI)AfAm (>60 ml/min/1.73 sqM) Est GFR (CKD-EPI)NonAf (>60 ml/min/1.73 sqM) Glucose (74-99) mg/dL Calcium (8.4-10.2) mg/dL Total Bilirubin (0.2-1.3) mg/dL AST (14-36) U/L ALT (4-34) U/L Alkaline Phosphatase (38-126) U/L Troponin I <0.012 (0.000-0.034) ng/mL C-Reactive Protein (<1.0) mg/dL Total Protein (6.3-8.2) g/dL Albumin (3.5-5.0) g/dL Influenza Type A (PCR) Not Detected (Not Detectd) Influenza Type B (PCR) Not Detected (Not Detectd) RSV (PCR) Not Detected (Not Detectd) SARS-CoV-2 (PCR) Not Detected (Not Detectd) Disposition <Scott Nam - Last Filed: 10/29/24 18:58> Is patient prescribed a controlled substance at d/c from ED?: No Time of Disposition: 21:30 <David Elkins - Last Filed: 10/29/24 22:30> Clinical Impression: Allergic reaction, Allergic reaction to drug, Insomnia Disposition: HOME SELF-CARE Condition: Good Instructions (If sedation given, give patient instructions): Anaphylaxis (ED), Insomnia (ED) Referrals: Mookie Simpson DO [Primary Care Provider] - 1-2 days
[2024-10-29 19:57] LABS: Anisocytosis Slight; Basophils # (A) 0.1 k/uL (0-0.2); Basophils % (A) 1 %; Eosinophils # (A) 0.2 k/uL (0-0.7); Eosinophils % (A) 2 %; HGB 13.1 gm/dL (11.4-16.0); Lymphocytes # (A) 1.6 k/uL (1.0-4.8); Lymphocytes % (A) 17 %; MCH 26.5 pg (25.0-35.0); MCHC 33.6 g/dL (31.0-37.0); MCV 78.9 fL (80.0-100.0); Mean Platelet Volume 6.9; Microcytosis Slight; Monocytes # (A) 0.9 k/uL (0-1.0); Monocytes % (A) 10 %; Neutrophils # (A) 6.5 k/uL (1.3-7.7); Neutrophils % (A) 68 %; Platelet Count 255 k/uL (150-450); RBC 4.94 m/uL (3.80-5.40); RDW 19.4 % (11.5-15.5); WBC 9.5 k/uL (3.8-10.6)
[2024-10-29 20:06] LABS: Partial Thromboplastin Time 24.2 sec (22.0-30.0); Prothrombin Time 10.7 sec (10.0-12.5)
[2024-10-29 20:17] LABS: ALT 20 U/L (4-34); AST 22 U/L (14-36); African American GFR (CKD) 90 (>60 ml/min/1.73 sqM); Albumin 4.4 g/dL (3.5-5.0); Alkaline Phosphatase 52 U/L (38-126); Anion Gap 10 mmol/L; Blood Urea Nitrogen 12 mg/dL (7-17); C Reactive Protein <0.5 mg/dL (<1.0); Calcium 9.1 mg/dL (8.4-10.2); Carbon Dioxide 24 mmol/L (22-30); Chloride 96 mmol/L (98-107); Glucose 93 mg/dL (74-99); Non-African American GFR(CKD) 78 (>60 ml/min/1.73 sqM); Potassium 4.7 mmol/L (3.5-5.1); Sodium 130 mmol/L (137-145); Total Bilirubin 0.4 mg/dL (0.2-1.3); Total Protein 6.9 g/dL (6.3-8.2)
[2024-10-29] MEDS: SODIUM CHLORIDE 0.9% 1,000 ML IV STA (20:18)
[2024-10-29] MEDS: METOCLOPRAMIDE 5 MG/ML 2 ML VIAL IVP STA (20:18)
[2024-10-29] MEDS: methylPREDNISolone SOD SUCCI 125 MG/2 ML VIAL IV STA (20:19)
[2024-10-29] MEDS: FAMOTIDINE 20 MG/2 ML VIAL IV STA (20:21)
[2024-10-29] MEDS: diphenhydrAMINE 50 MG/ML 1 ML VIAL IVP STA (20:21)
--- NOTE | 2024-10-29 20:34 | XR ---
EXAMINATION TYPE: XR chest 2V DATE OF EXAM: 10/29/2024 8:30 PM COMPARISON: 06/29/2021 CLINICAL INDICATION: Female, 64 years old with history of Chest tightness; PH TECHNIQUE: XR chest 2V Frontal and lateral views of the chest. FINDINGS: Lungs/Pleura: There is no evidence of pleural effusion, focal consolidation, or pneumothorax. Pulmonary vascularity: Unremarkable. Heart/mediastinum: Cardiomediastinal silhouette is unremarkable. Musculoskeletal: No acute osseous pathology. IMPRESSION: Right middle lobe airspace opacities chronically pneumoperitoneum. [facility], , 10/29/2024 8:31 PM
[2024-10-29 20:42] LABS: Influenza A Not Detected (Not Detectd); Influenza B Not Detected (Not Detectd); RSV Not Detected (Not Detectd)
[2024-10-29] MEDS: diazePAM 5 MG TAB PO STA (22:26)
[2024-10-29 22:27] VITALS: BP 149/78; PULSE 89
== END 2024-10-29 22:27 | disposition home or self-care (01) ==
LOC: EC 18:13
DX: G47.00 Insomnia, unspecified (principal); T45.1X5A Adverse effect of antineoplastic and immunosuppressive drugs, initial encounter; Z88.5 Allergy status to narcotic agent; Z88.0 Allergy status to penicillin; Z88.2 Allergy status to sulfonamides; Z88.6 Allergy status to analgesic agent; Z88.1 Allergy status to other antibiotic agents
CPT/HCPCS: 36415; 93005; 80053; 84484; 85025; 85610; 85730; 86140; 87636; 71046; 99284; 96374; 96375 ×3; 96361 ×2; J1200; J2765; J3490; J2919